=== PATIENT | female | born 1995 | race Caucasian/White ===

== ENCOUNTER 2022-05-18 10:04 | Emergency (ER) | payer OTHER, SELFPAY ==
[2022-05-18 10:27] VITALS: BP 116/97; PULSE 106; RESP 16; TEMP 37.1; O2SAT 99
--- NOTE | 2022-05-18 11:30 | ED.URI ---
HPI - URI/Sore Throat General Chief Complaint: Upper Respiratory Infection Stated Complaint: Sinus/Cough/Ears Time Seen by Provider: 05/18/22 11:31 Source: patient, RN notes reviewed and old records reviewed Mode of arrival: ambulatory Limitations: no limitations History of Present Illness HPI Narrative: 26-year-old female presents to the [facility] with sinus congestion, cough, ear pain that started 4 days ago. 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 States that she takes Claritin daily. No other treatment prior to arrival cut she does not know which she can take for her symptoms due to being 33 weeks . Related Data Home Medications Medication Instructions Recorded Confirmed cholecalciferol (vitamin D3) 10 10 mcg PO DAILY 05/18/22 05/18/22 mcg (400 unit) tablet escitalopram oxalate 10 mg tablet 10 mg PO DAILY 05/18/22 05/18/22 (Lexapro) famotidine 20 mg tablet (Pepcid) 20 mg PO DAILY 05/18/22 05/18/22 loratadine 10 mg tablet (Claritin) 10 mg PO DAILY 05/18/22 05/18/22 magnesium 200 mg tablet 200 mg PO DAILY 05/18/22 05/18/22 ondansetron HCl 4 mg tablet 4 mg PO Q6H 05/18/22 05/18/22 [id number] < 1 pkg PO 05/18/22 mg-iron oral combo pack Allergies Allergy/AdvReac Type Severity Reaction Status Date / Time milk Allergy Congested Verified 05/18/22 10:31 Review of Systems Review of Systems: All systems reviewed & are unremarkable except as noted in HPI and below Constitutional: Constitutional: Reports no additional constitutional complaints Eyes: Eyes: Reports no additional eye complaints ENT: Reports as per HPI Cardiovascular: Cardiovascular: Reports no additional cardiovascular complaints, Denies chest pain and Denies dyspnea Respiratory: Respiratory: Reports as per HPI, Denies chest congestion, Reports cough and Denies dyspnea Gastrointestinal: Gastrointestinal: Reports no additional gastrointestinal complaints, Denies abdominal pain, Denies nausea and Denies vomiting Musculoskeletal: Musculoskeletal: Reports no additional musculoskeletal complaints Integumentary/Breasts: Skin/Breast: Reports system reviewed and no additional complaints, except as docu Neurologic: Reports system reviewed and no additional complaints, except as documented Psychiatric: Psychiatric: Reports no additional psychiatric complaints Allergic/Immunologic: Allergic/Immunologic: Reports no additional allergic/immunologic complaints PMFSH Comments At the time of my signature, I reviewed and agree with the nursing past medical, surgical, social, and family history. There is no relevant family history pertinent to the patient complaint. Exam Const: General: cooperative, comfortable, no acute distress, well developed, alert, ill appearing acutely (mild) and well nourished Nutritional Appearance: well nourished Orientation/consciousness: patient oriented x3 Limitations: no limitations HENMT: Head: normal to inspection Ears: hearing grossly normal bilaterally and external ears normal Face/Nose/Sinus: Normal external nose present, Normal nares present, Normal nasal mucous membranes and turbinates present, Nasal discharge present clear bilateral and normal facial exam Face and sinus: normal facial exam Mouth: Yes Normal oral and palatal mucosa present, Yes lip normal and Yes moist mucous membranes Throat: posterior oropharynx normal, uvula midline and postnasal drainage Eyes: General: appearance normal, both eyes and all related structures Alignment and Position: alignment normal Periorbital: periorbital findings normal Conjunctivae: conjunctivae normal Pupils: Equal, round and reactive pupils present EOM: EOMs intact bilaterally Neck: Neck: normal visual inspection, full ROM, no lymphadenopathy and no meningeal signs Chest: Chest palpation & inspection: normal inspection of the chest Resp: Effort & Inspection: normal respiratory effort and able to speak in
== END 2022-05-18 11:47 | disposition home or self-care (01) ==
PROVIDERS: Emergency Provider Nurse Practitioner
DX: J01.40 Acute pansinusitis, unspecified (principal); R09.82 Postnasal drip
CPT/HCPCS: 87081; 87426; 87880; 99213; C9803; G0463

== ENCOUNTER 2022-11-17 10:09 | Outpatient (CLI) | payer OTHER, SELFPAY ==
[2022-11-17 10:54] LABS: Hematocrit 45.5 % (37.0-47.0); Hemoglobin 14.7 g/dL (12.0-15.0); Mean Corpuscular HGB Conc 32.3 g/dl (32-36); Mean Corpuscular Hemoglobin 27.5 pg (26-34); Mean Corpuscular Volume 85.2 fl (80-100); Mean Platelet Volume 9.4 fl (7.4-10.4); Platelet Count Result 252 k/mm3 (150-375); Red Blood Count 5.34 M/mm3 (4.2-5.4); Red Cell Distribution Width 15.3 % (11.5-14.5); White Blood Count 6.2 K/mm3 (4.5-10.0)
[2022-11-17 11:07] LABS: Alanine Aminotransferase 25 U/L (6-35); Albumin Level 4.6 g/dL (3.5-5.1); Alkaline Phosphatase 105 U/L (38-126); Anion Gap 7 mmol/L (8-16); Aspartate Amino Transferase 29 U/L (14-36); Bilirubin,Total 0.5 mg/dL (0.2-1.3); Blood Urea Nitrogen 12 mg/dL (7-17); Calcium 9.5 mg/dL (8.4-10.2); Carbon Dioxide 26 mmol/L (22-30); Chloride 103 mmol/L (98-107); Cholesterol 235 mg/dL (0-200); Estimated Glomerular Filt Rate > 60; Glucose 102 mg/dL (65-110); HDL Direct 62 mg/dL; Potassium 4.2 mmol/L (3.4-5.0); Sodium 136 mmol/L (137-145); Triglycerides 117 mg/dL (<150)
[2022-11-17 11:19] LABS: LDL Cholesterol Direct 132 mg/dL
[2022-11-23 05:20] LABS: Immunoglobulin A 157 mg/dL (47-310); TTG IGA AB <1.0 U/mL (<15.0)
== END 2022-11-17 10:10 | disposition home or self-care (01) ==
PROVIDERS: PCP Nurse Practitioner Family; Visit Provider Nurse Practitioner Family
DX: Z13.220 Encounter for screening for lipoid disorders (principal); R19.4 Change in bowel habit; F32.A Depression, unspecified
CPT/HCPCS: 36415; 80053; 80061; 82607; 82784; 84443; 85027; 86003; 86364

== ENCOUNTER 2022-12-08 13:47 | Outpatient (CLI) | payer OTHER, SELFPAY ==
--- NOTE | ~2022-12-08 | XR_ITS ---
XR abdomen/kub 1V 12/08/2022 14:10 INDICATION: Frequent diarrhea TECHNIQUE: KUB COMPARISON: None FINDINGS: Bowel gas pattern is normal. Moderate colonic fecal loading. There is no evidence of free a ir, mass, organomegaly, ascites or obstruction. No abnormal calculi are seen. The bones appear inta ct. IMPRESSION: 1: No acute abdominal abnormality identified. Reviewed, dictated and finalized at location B.
[2022-12-09 08:12] LABS: Toxigenic C. Diff NEGATIVE (NEGATIVE)
== END 2022-12-08 13:48 | disposition home or self-care (01) ==
PROVIDERS: PCP Nurse Practitioner Family; Visit Provider Nurse Practitioner Family
DX: R19.4 Change in bowel habit (principal); R19.7 Diarrhea, unspecified
CPT/HCPCS: 74018; 87493

== ENCOUNTER 2022-12-11 15:56 | Outpatient (CLI) | payer OTHER, SELFPAY ==
--- NOTE | ~2022-12-11 | US_ITS ---
EXAMINATION: US pelvic complete w TV DATE: 12/11/2022 17:53 INDICATION: Abnormal uterine bleeding Comparison:No prior studies for comparison. TECHNIQUE: Multiple transabdominal and endovaginal sonographic images of the pelvis performed. FINDINGS: The uterus measures 7.1 x 3.3 x 4.5 cm. Uterus is anteverted. The endometrial complex measu res 4.8 mm. The right ovary measures 4.2 x 2.4 x 2.5 cm and the left ovary measures 3.4 x 2.4 x 2.1 cm. There ar e small follicles in each ovary. Normal doppler signal in both ovaries. There is trace free fluid in the pelvis. There are no abnormal masses seen on either side. IMPRESSION: 1. Unremarkable pelvic ultrasound. Reviewed, dictated and finalized at location A.
== END 2022-12-11 15:57 | disposition home or self-care (01) ==
PROVIDERS: PCP Nurse Practitioner Family; Visit Provider Advanced Practice Midwife
DX: N93.9 Abnormal uterine and vaginal bleeding, unspecified (principal)
CPT/HCPCS: 76830; 76856

== ENCOUNTER 2022-12-28 14:39 | Emergency (ER) | payer OTHER, SELFPAY ==
--- NOTE | ~2022-12-28 | XR_ITS ---
EXAM: XR wrist LT min 3V DATE: 12/28/2022 16:01 HISTORY: Wrist pain . COMPARISON: None available. FINDINGS: Normal mineralization. No fracture or dislocation. No lytic or blastic lesion. Joint space s are maintained. No erosion or periosteal change. Soft tissues within normal limits. IMPRESSION: No acute osseous finding in the left wrist. Reviewed, dictated and finalized at location K.
--- NOTE | ~2022-12-28 | XR_ITS ---
EXAM: XR elbow LT 2V DATE: 12/28/2022 15:37 HISTORY: fall, elbow injury SMALL ABRASION POSTERIOR ELBOW . COMPARISON: None available. FINDINGS: Normal mineralization. No fracture or dislocation. No lytic or blastic lesion. Joint space s are maintained. No erosion or periosteal change. Soft tissues within normal limits. IMPRESSION: No acute osseous finding in the left elbow. Reviewed, dictated and finalized at location K.
[2022-12-28 14:44] VITALS: BP 144/95; PULSE 100; RESP 18; TEMP 36.8; O2SAT 100
[2022-12-28] MEDS: ACETAMINOPHEN 500 MG TABLET 1000 MG PO (16:04)
[2022-12-28] MEDS: LIDOCAINE 5% PATCH 1 PATCH TRANSDERM (16:06)
--- NOTE | 2022-12-28 16:10 | ED.UPPEXIN ---
HPI - Extremity Injury (Upper) General Chief Complaint: Extremity Injury, Upper Stated Complaint: FALL,L ELBOW INJURY Time Seen by Provider: 12/28/22 15:28 History of Present Illness HPI narrative: This is a 27-year-old female, with no significant past medical history, presents emergency department complaining of left elbow pain and left wrist pain after fall. The patient states she was walking her dog, when she was pulled forward, tripping and landing on the left wrist and elbow. She complains of 5/10, dull pain in the left elbow and wrist (just below the right thumb) exacerbated by movement. Related Data Allergies Allergy/AdvReac Type Severity Reaction Status Date / Time No Known Allergies Allergy Verified 12/28/22 14:46 Review of Systems Review of Systems: CONSTITUTIONAL: Denies fever, chills, or sweats. CARDIOVASCULAR: Denies chest pain, palpitations, or edema. RESPIRATORY: Denies cough or dyspnea. GASTROINTESTINAL: Denies abdominal pain, nausea, vomiting, or diarrhea. SKIN: Denies rash or itching. MUSCULOSKELETAL: Left elbow and wrist pain denies back pain, or myalgia. PMFSH Past Medical History Medical History Abdominal pain Blood in stool Diarrhea Gas bloat syndrome Social History Social History Social History: Lives at home with and two children. Smoking status: Unknown if ever smoked Alcohol intake: current Alcohol use details: 1 glass/wine 1-2 x/week Substance use type: does not use Lack of Transportation: No Lack of Food: Never True Current Housing: I Have Housing Concerned About Future Housing: No Difficulty Paying Gas/Electric Bills: No Difficulty Paying for Meds: No Currently Unemployed: No Education: Associate Degree Difficulty w/ Childcare or Family Care: No Living arrangements: with family Additional living arrangements comments: and two children Gender identity (if verbalized by the patient): Female Sexual Orientation (if Verbalized by the Patient): Straight or Heterosexual Spiritual care concerns: No Agree to blood products: Yes Exam Narrative: GENERAL: Well-developed, well-nourished, and in no acute distress. HEAD: Normocephalic, atraumatic. EYES: PERRLA and EOMI. NECK: Supple. No midline spine tenderness to palpation no step-off or crepitus CHEST: Clear to auscultation. No respiratory distress. No wheezes rales or rhonchi HEART: Regular rate and rhythm. No murmur heard. Normal peripheral pulses. ABDOMEN: Soft, nontender, nondistended, normal active bowel sounds. BACK: No midline spine tenderness to palpation no step-off or crepitus EXTREMITIES: Normal range of motion. No edema. SKIN: Warm, dry, no rash. NEURO: Alert and oriented x3. Moving all 4 limbs purposefully. PSYCH: Normal mood and affect. Course Course Emergency Course: 16:37 - X-ray of the elbow and wrist not concerning for fracture. The patient's tetanus vaccination is up-to-date. Will discharge with recommendation for Tylenol and ibuprofen as needed for pain. Discussed return and emergency precautions including signs/symptoms of septic arthritis and neurovascular compromise. The patient voiced understanding and is comfortable with the plan. All questions answered to her satisfaction. Vital Signs Vital signs: Vital Signs Temperature 98.2 F 12/28/22 14:44 Pulse Rate 100 12/28/22 14:44 Respiratory Rate 18 12/28/22 14:44 Blood Pressure 144/95 H 12/28/22 14:44 Pulse Oximetry 100 12/28/22 14:44 Oxygen Delivery Room Air 12/28/22 14:44 Temperature 98.2 F 12/28/22 14:44 Pulse Rate 100 12/28/22 14:44 Respiratory Rate 18 12/28/22 14:44 Blood Pressure 144/95 H 12/28/22 14:44 Pulse Oximetry 100 12/28/22 14:44 Oxygen Delivery Room Air 12/28/22 14:44 MDM - Extremity Injury (Upper) MDM Narrative Medical
== END 2022-12-28 16:49 | disposition home or self-care (01) ==
PROVIDERS: Emergency Provider Preventive Medicine Aerospace Medicine; PCP Nurse Practitioner Family
DX: S50.02XA Contusion of left elbow, initial encounter (principal); S60.212A Contusion of left wrist, initial encounter; W01.0XXA Fall on same level from slipping, tripping and stumbling without subsequent striking against object, initial encounter; Y93.K1 Activity, walking an animal
CPT/HCPCS: 73070; 73110; 99283; A9270

== ENCOUNTER 2023-01-16 00:45 | Day surgery (SDC) | payer OTHER, SELFPAY ==
[2023-01-01 13:20] VITALS: BMI 39.5
--- NOTE | 2023-01-14 10:24 | SUR.PREOP ---
Patient called regarding upcoming procedure. Reviewed preop instructions, appointment times, and procedure prep.
[2023-01-16 08:12] VITALS: BP 135/86; PULSE 84; RESP 18; TEMP 36.1; O2SAT 100
[2023-01-16] MEDS: LACTATED RINGERS 1,000 ML 150 ML IV CONT (08:21)
--- NOTE | 2023-01-16 08:43 | WPDANESEPPF ---
Anes - Initial Pre Proc Eval Procedure: Operation Date: 01/16/23 09:00 Proposed Procedures p Colonoscopy - Jarvis Rodgers MD Date/Time: 01/16/23 08:43 Surgeon: Jarvis Rodgers MD Pre Op Diagnosis: Melena,Change in bowel habit,Diarrhea Patient Data Age: 27 Gender: F Height: 1.55 m Weight: 93.5 kg Last Vital Signs Temp 97 F L 01/16/23 08:12 Pulse 84 01/16/23 08:12 Resp 18 01/16/23 08:12 BP 135/86 01/16/23 08:12 Pulse Ox 100 01/16/23 08:12 O2 Del Method Room Air 01/16/23 08:12 Allergies Allergy/AdvReac Type Severity Reaction Status Date / Time No Known Allergies Allergy Verified 01/16/23 08:11 Home Medications Medication Instructions Recorded Confirmed Type escitalopram oxalate 10 mg tablet 10 mg PO DAILY #90 tabs 11/17/22 01/01/23 Rx (Lexapro) Patient hx anesthesia problems: none Family hx anesthesia problems: none Results Review: All pre-operative results and documents have been reviewed as part of the pre-operative evaluation. [facility] Past Medical History Medical History Abdominal pain Blood in stool Diarrhea Gas bloat syndrome Social History Social History Social History: Lives at home with and two children. Smoking status: Never smoker Alcohol intake: current Drinks per week: 1 Alcohol use details: 1 glass/wine 1-2 x/week Substance use type: does not use Lack of Transportation: No Lack of Food: Never True Current Housing: I Have Housing Concerned About Future Housing: No Difficulty Paying Gas/Electric Bills: No Difficulty Paying for Meds: No Currently Unemployed: No Education: Associate Degree Difficulty w/ Childcare or Family Care: No Living arrangements: with family Additional living arrangements comments: and two children Gender identity (if verbalized by the patient): Female Sexual Orientation (if Verbalized by the Patient): Straight or Heterosexual Spiritual care concerns: No Agree to blood products: Yes Anes - Eval Final PreProcedure Day of Procedure 01/16/23 08:43 Patient weight: morbidly obese Heart: regular rate and rhythm Lungs: clear to auscultation Airway: Mallampati scale class II Neurological: alert and oriented Last oral intake: >/= 8 hours ASA classification: III Emergent: no Anesthetic plan: proceed Anesthesia type and monitoring: general GIVS and standard monitoring Results Review: All pre-operative results and documents have been reviewed as part of the pre-operative evaluation. Informed Consent: The patient's anesthetic plan and its attendant risks and benefits were discussed with the patient/family/POA. Questions were solicited and answers provided to the satisfaction of the patient/family/POA.
--- NOTE | 2023-01-16 08:46 | PM.HPGS ---
History of Present Illness History of Present Illness Consent: Risks, benefits, and alternatives have been discussed and questions answered. Patient agrees to proceed with procedure. Chief complaint: Melena,Change in bowel habit,Diarrhea Narrative: Enedina Urbina is a 27 year old female with loose stools, in few occasions noted blood in stool, never had colonoscopy. Serology for celiac negative, C diff negative Review of Systems Constitutional: Constitutional: Denies headache(s) and Denies weakness Eyes: Eyes: Denies blurry vision ENT: Reports Normal hearing present, Denies headache(s) and Denies neck pain Cardiovascular: Cardiovascular: Denies chest pain and Denies dyspnea Respiratory: Respiratory: Denies dyspnea Gastrointestinal: Gastrointestinal: Reports no additional gastrointestinal complaints Genitourinary: Genitourinary: Denies dysuria Musculoskeletal: Musculoskeletal: Denies neck pain Integumentary/Breasts: Skin/Breast: Denies dry skin Neurologic: Reports Normal hearing present, Denies headache(s) and Denies weakness Psychiatric: Psychiatric: Denies anxiety Endocrine: Endocrine: Denies change in body appearance Hematologic/Lymphatic: Hematologic/Lymphatic: Denies easy bleeding Allergic/Immunologic: Allergic/Immunologic: Denies urticaria PMFSH Past Medical History Medical History Abdominal pain Blood in stool Diarrhea Gas bloat syndrome Social History Social History Social History: Lives at home with and two children. Smoking status: Never smoker Alcohol intake: current Drinks per week: 1 Alcohol use details: 1 glass/wine 1-2 x/week Substance use type: does not use Lack of Transportation: No Lack of Food: Never True Current Housing: I Have Housing Concerned About Future Housing: No Difficulty Paying Gas/Electric Bills: No Difficulty Paying for Meds: No Currently Unemployed: No Education: Associate Degree Difficulty w/ Childcare or Family Care: No Living arrangements: with family Additional living arrangements comments: and two children Gender identity (if verbalized by the patient): Female Sexual Orientation (if Verbalized by the Patient): Straight or Heterosexual Spiritual care concerns: No Agree to blood products: Yes Meds Home Medications and Allergies Home Medications Medication Instructions Recorded Confirmed Type escitalopram oxalate 10 mg tablet 10 mg PO DAILY #90 tabs 11/17/22 01/01/23 Rx (Lexapro) Allergies Allergy/AdvReac Type Severity Reaction Status Date / Time No Known Allergies Allergy Verified 01/16/23 08:11 Vital Signs Vital Signs - 24 hr 01/16/23 08:12 Temperature 97 F L Pulse Rate 84 Respiratory Rate 18 Blood Pressure 135/86 Pulse Oximetry 100 Oxygen Delivery Room Air Exam Const: General: comfortable and no acute distress HENMT: Face/Nose/Sinus: Normal nares present Eyes: General: appearance normal, both eyes and all related structures Neck: Neck: no JVD Resp: Auscultation: clear to auscultation bilaterally Cardio: Rate: regular rate Rhythm: regular rhythm GI: Inspection: non-distended GI Palp: Yes Soft to palpation Skin: General skin exam: normal color Neuro: General: gait normal Speech: normal speech Extrem: General: normal to inspection Psych: Mental Status: mental status grossly normal Assessment and Plan Assessment and plan (1) Diarrhea: Code(s): R19.7 - Diarrhea, unspecified Status: Acute Assessment and Plan: colonoscopy with random colon bx (2) Blood in stool: Code(s): K92.1 - Melena Status: Acute (3) Bowel habit changes: Code(s): R19.4 - Change in bowel habit Status: Acute
[2023-01-16 09:01] VITALS: BP 108/73; PULSE 92; RESP 18; O2SAT 97
[2023-01-16 09:11] VITALS: BP 109/86; PULSE 77; RESP 18; O2SAT 100
[2023-01-16 09:21] VITALS: BP 111/84; PULSE 76; RESP 18; O2SAT 99
== END 2023-01-16 09:28 | disposition home or self-care (01) ==
PROVIDERS: PCP Nurse Practitioner Family; Visit Provider Internal Medicine Gastroenterology
PROC: 0DJD8ZZ Inspection of Lower Intestinal Tract, Via Natural or Artificial Opening Endoscopic (ICD-10-PCS; CPT 45378; principal; 2023-01-16 09:00)
DX: K52.832 Lymphocytic colitis (principal); K63.5 Polyp of colon; F10.90 Alcohol use, unspecified, uncomplicated; E66.01 Morbid (severe) obesity due to excess calories; Z68.38 Body mass index [BMI] 38.0-38.9, adult; Z79.899 Other long term (current) drug therapy
CPT/HCPCS: 45385; 45380; 88305; J2704; J7120

== ENCOUNTER 2024-06-23 15:01 | Outpatient (CLI) | payer OTHER, SELFPAY ==
[2024-06-23 15:23] LABS: Basophils Absolute Auto 0.1 K/mm3 (0.0-0.1); Eosinophils Absolute Auto 0.1 K/mm3 (0-0.3); Eosinophils Percent Auto 1.8 % (0-4.4); Hematocrit 41.8 % (37.0-47.0); Hemoglobin 13.2 g/dL (12.0-15.0); Immature Granulocyte Absolute 0.02 K/mm3 (0.00-0.031); Immature Granulocyte Percent A 0.3 % (0-0.5); Lymphocytes Absolute Auto 2.64 K/mm3 (0.9-3.2); Lymphocytes Percent Auto 44.4 % (18.3-44.2); Mean Corpuscular HGB Conc 31.6 g/dl (32-36); Mean Corpuscular Hemoglobin 28.1 pg (26-34); Mean Corpuscular Volume 88.9 fl (80-100); Monocytes Absolute Auto 0.5 K/mm3 (0.1-0.6); Monocytes Percent Auto 8.9 % (2.6-8.5); Neutrophils Absolute Auto 2.6 K/mm3 (1.3-6.7); Neutrophils Percent Auto 43.6 % (45.5-73.1); Platelet Count Result 337 k/mm3 (150-375); Red Cell Distribution Width 12.3 % (11.5-14.5)
[2024-06-23 15:36] LABS: Alanine Aminotransferase 18 U/L (6-35); Albumin Level 4.6 g/dL (3.5-5.1); Alkaline Phosphatase 84 U/L (38-126); Anion Gap 7 mmol/L (4-12); Aspartate Amino Transferase 26 U/L (14-36); Bilirubin,Total 0.5 mg/dL (0.2-1.3); Blood Urea Nitrogen 10 mg/dL (7-17); Calcium 9.3 mg/dL (8.4-10.2); Carbon Dioxide 29 mmol/L (22-30); Chloride 105 mmol/L (98-107); Cholesterol 196 mg/dL (0-200); Estimated Glomerular Filt Rate > 60; Glucose 87 mg/dL (65-110); HDL Direct 62 mg/dL; Magnesium 2.2 mg/dL (1.6-2.3); Potassium 4.4 mmol/L (3.4-5.0); Sodium 141 mmol/L (137-145); Triglycerides 58 mg/dL (<150)
[2024-06-23 15:47] LABS: LDL Cholesterol Direct 99 mg/dL
[2024-06-23 16:06] LABS: Hemoglobin A1C 4.9 % (<5.7)
--- OUTSIDE RECORDS SUMMARY | 2024-06-23 16:16 | XMS_ITS | Clinical Summary ---
Author Organization [facility] Address [address] [place] [id number] Care Team Providers Care Contracting Manager Name Role Phone Ilene Cedillo MIGNON Primary Care Provider [phone] Allergies Active Allergy Reactions Criticality Noted Date Comments Latex Rash,Itching Low 07/04/2022 Medications escitalopram (LEXAPRO) 10 MG tablet Take 1 tablet (10 mg total) by mouth daily. Active vitamin, low iron, ( VITAMIN WITH IRON) 27-0.8 MG tablet Take 1 tablet by mouth daily. Active lanolin ([employer]) Cream cream Apply topically as needed for Irritation. 9 mL 1 3 Active benzocaine-ment hol (DERMOPLAST) 20-0.5 % Aerosol Apply 1 spray topically 4 (four) times daily as needed (Perineal discomfort). 56 g 1 3 Active Active Problems Problem Noted Date Diagnosed Date ([facility]) 07/04/2022 mental disorders of mother ([facility]) 07/04/2022 Family History * Patient is adopted Medical History Relation Comments Obesity Father Cancer Maternal Grandmother Obesity Mother Cancer Paternal Grandmother Relation Status Comments Father Maternal Grandmother Mother Paternal Grandmother Social History Tobacco Use Types Packs/Day Years Used Date Smoking Tobacco: Never Smokeless Tobacco: Never Tobacco Cessation:Counseling Given: Not Answered Alcohol Use Standard Drinks/Week Comments Not Currently 0 (1 standard drink = 0.6 oz pur e alcohol) Humiliation, Afraid, Rape, and Kick questionnair e Answer Date Recorded Within the last year, have y ou been afraid of your partner or ex-partner? No 07/05/2022 Within the last year, have y ou been humiliated or emotionally abused in other ways by your partner or ex-partner? No Within the last year, have y ou been kicked, hit, slapped, or otherwise physically hurt by your partner or ex-partner? No 07/05/2022 Within the last year, have y ou been raped or forced to have any kind of sexual activity by your partner or ex-partner? No 07/05/2022 Social Connection and Isolat ion Panel [NHANES] Answer Date Recorded In a typical week, how many times do you talk on the phone with family, friends, or neighbors? More than three times a week 07/05/2022 How often do you get togethe r with friends or relatives? Patient declined 07/05/2022 Attends [employer] Not on file 07/05 Active Member of Clubs or Organizations Not on f ile 07/05/2022 Attends Club or Organization Meetings Not on cyrus e 07/05/2022 Are you , , di vorced, , never , or living with a partner? 07/05/2022 AUDIT-C Answer Date Recorded Q1: How often do you have a drink containing alcohol? Never 07/05/2022 Q2: How many drinks containi ng alcohol do you have on a typical day when you are drinking? Patient does not drink Q3: How often do you have si x or more drinks on one occasion? Never 07/05/2022 Overall Financial Resource Strain (CARDIA) Answe r Date Recorded How hard is it for you to pa y for the very basics like food, housing, medical care, and heating? Not hard at all 07/05/2022 [facility] - Occupational Stress Questionnaire Answer Date Recorded Do you feel stress - tense, restless, nervous, or anxious, or unable to sleep at night because your mind is troubled all the time - these days? Not at all 07/05/2022 Exercise Vital Sign Answer Date Recorde d On average, how many days pe r week do you engage in moderate to strenuous exercise (like a brisk walk)? Patient declined On average, how many minutes do you engage in exercise at this level? Patient declined 07/05/2022 Hunger Vital Sign Answer Date Recorded Within the past 12 months, y ou worried that your food would run out before you got the money to buy more. Never true 07/06/19 23 Within the past 12 months, t he food you bought just didn't last and you didn't have money to get more. Never true 07/05/2022 PRAPARE - Transportation Answer Date Re corded In the past 12 months, has l ack of transportation kept you from medical appointments or from getting medications? No 07/2022 In the past 12 months, has l ack of transportation kept you from meetings, work, or from getting things needed for daily living? No 07/05/2022 Housing Stability Vital Sign Answer Stan e Recorded In the last 12 months, was t here a time when you were not able to pay the mortgage or rent on time? No 07/05/2022 Number of Places Lived in the Last Year Not on f ile 07/05/2022 In the last 12 months, was t here a time when you did not have a steady place to sleep or slept in a fci (including now)? No 07/05/2022 Depression Answer Date Recor ded Last EPDS Total Score 6 07/06/2022 Last EPDS Self Harm Result Unrecognized value Comments No Sex and Gender Information Value Date Recorded Sex Assigned at Not on file Legal Sex Female 8:16 AM CDT Gender Identity Not on file Sexual Orientation Not on file Last Filed Vital Signs Vital Sign Reading Time Taken Comments Blood Pressure 139/84 03/17/2023 1:13 PM POLYMER SPECIALIST Pulse 78 03/17/2023 1:13 PM POLYMER SPECIALIST Temperature 36.4 C (97.5 F) 03/17/2023 1:13 PM POLYMER SPECIALIST Respiratory Rate 18 03/17/2023 1:13 PM POLYMER SPECIALIST Oxygen Saturation 100% 03/17/2023 1:13 PM POLYMER SPECIALIST Inhaled Oxygen Concentration - - Weight 94.7 kg (208 lb 12.4 oz) 03/17/2023 1:13 PM POLYMER SPECIALIST Height 157.5 cm (5' 2 ) 03/17/2023 1:13 PM POLYMER SPECIALIST Body Mass Index 38.19 03/17/2023 1:13 PM POLYMER SPECIALIST Plan of Treatment Health Maintenance Due Date Last Done Comments Cervical Cancer Screening Yovany soria Smear (Age 21 to 29) Every 3 Years 1994 Cervical Cancer Screening 1994 Annual Physical 1997 Hepatitis C 2012 Hepatitis B Vaccines (1 of 3 - 19+ 3-dose series) 2013 COVID-19 Vaccine (2 - 2023-2 5 season) 2023 10/03/2020 DTaP, Tdap and Td Vaccines ( 3 - Td or Tdap) 05/09/2032 05/09/2022, 10/03/2020 HPV Vaccines Aged Out No longer eligi ble based on patient's age to complete this topic Meningococcal B Vaccine Aged Out No l onger eligible based on patient's age to complete this topic Meningococcal Vaccine Aged Out No bill sally eligible based on patient's age to complete this topic Pneumococcal Vaccine: Pediatrics (0 to 5 Years) and At-Risk Patients (6 to 49 Years) Aged Out No longer eligible b ased on patient's age to complete this topic RSV Immunizations Under 20 Months Aged Out No longer eligible b ased on patient's age to complete this topic Insurance ALLIED BENEFITS Advance Directives * Full Code (Latest Code Status on File) Date Activated Date Inactivated Comments 07/04/2022 8:29 AM 07/06/2022 3:03 PM Care Teams Contracting Manager Relationship Specialty Start Date End Date Ilene Cedillo CNM [address] [place] [id number] (work) PCP - General CERTIFIED NURSE OPTIMIZATION ANALYST 07/03/22
--- OUTSIDE RECORDS SUMMARY | 2024-06-23 16:16 | XMS_ITS | Referral Summary ---
Author Organization [facility] C Address [address] [place] [address] Care Team Providers Care Supervisor Cloth Winding Name Role Phone No, Physician Primary Care Provider [phone] Alphonso Frias MD Unavailable [phone] Allergies Active Allergy Reactions Criticality Noted Date Comments Adhesive Unknown 11/08/2020 Latex Rash Medium 09/14/2020 Sensitivity to latex condoms and some adhesives Milk Unknown 11/08/2020 Medications calcium carbonate (TUMS) 500 mg calcium (200 mg of elemental calcium) chewable tablet Take 200 mg by mouth as needed Active famotidine (PEPCID) 20 mg tablet Take 20 mg by mouth 2 (two) times a day Active acetaminophen (TYLENOL ORAL) Take by mouth as needed Active diphenhydramine HCl (BENADRYL ALLERGY ORAL) Take by mouth Active amoxicillin (AMOXIL) 875 mg tablet Take 875 mg by mouth every 12 (twelve) hours 05/18/2022 Active loratadine (CLARITIN) 10 mg tablet Take 10 mg by mouth daily Active ondansetron (ZOFRAN) 4 mg tablet Take 4 mg by mouth every 4 (four) hours as needed 04/10/2022 Active escitalopram (LEXAPRO) 10 mg tablet Take 10 mg by mouth daily 05/10/2022 Active PNV no.95/ferrous fum/folic ac ( ORAL) Take by mouth daily Active cholecalciferol , vitamin D3, (VITAMIN D3 ORAL) Take 1 capsule by mouth daily Active magnesium glycinate 100 mg tablet Take 3 tablet/capsu le by mouth daily Active Active Problems Problem Noted Date Diagnosed Date Generalized anxiety disorder 10/13/2020 Panic attacks 10/13/2020 with 32 completed weeks gestation 09/30 Acute right flank pain 10/12/2020 Nausea and vomiting 10/12/2020 Dehydration 10/12/2020 Anemia during in third trimester 10/12 Kidney stone complicating , third trime ster 10/12/2020 Immunizations Immunization Administration Dates Next Due MMR 11/26/2020 Pfizer SARS-CoV-2 Monovalent Vaccination (12+ Yrs) PURPLE 10/03/2020 Tdap 10/03/2020 Social History Tobacco Use Types Packs/Day Years Used Date Smoking Tobacco: Never Smokeless Tobacco: Never Humiliation, Afraid, Rape, and Kick questionnair e Answer Date Recorded Within the last year, have y ou been afraid of your partner or ex-partner? No 11/08/2020 Within the last year, have y ou been humiliated or emotionally abused in other ways by your partner or ex-partner? No Within the last year, have y ou been kicked, hit, slapped, or otherwise physically hurt by your partner or ex-partner? No 11/08/2020 Within the last year, have y ou been raped or forced to have any kind of sexual activity by your partner or ex-partner? No 11/08/2020 AUDIT-C Answer Date Recorded Q1: How often do you have a drink containing alc ohol? Never 11/26/2020 Average Number of Drinks Not on file 021 Frequency of Binge Drinking Not on file 11/01 [place] Depression Scale Answer Date Recorded [place] Depression Scale Total 3 11/29/2020 The thought of harming myself has occurred to me . Never 11/29/2020 Personal Safety Answer Date Recorded Getting School Help Needed Not on file 03/01 Comments No Sex and Gender Information Value Date Recorded Sex Assigned at Not on file Legal Sex Female 8:20 AM CDT Gender Identity Not on file Sexual Orientation Not on file Last Filed Vital Signs Vital Sign Reading Time Taken Comments Blood Pressure 123/56 05/23/2022 3:43 PM CDT Pulse 93 05/23/2022 3:43 PM CDT Temperature 36.1 C (97 F) 05/23/2022 3:46 PM CDT Respiratory Rate 18 11/29/2020 8:00 AM CDT Oxygen Saturation 100% 05/23/2022 3:43 PM CDT Inhaled Oxygen Concentration - - Weight 87.1 kg (192 lb) 05/23/2022 12:58 PM CDT Height 154.9 cm (5' 1 ) 05/23/2022 12:58 PM CDT Body Mass Index 36.28 05/23/2022 12:58 PM CDT Plan of Treatment Not on file Procedures Procedure Name Priority Date/Time Associated Diagnosis Comments HEPATITIS C ANTIBODY Routine 05/05/2020 from Last 3 Months or Most Recently Relevant to Health Maintenance Results * Hepatitis C antibody (05/05/2020) SCRIBED HCV ab negative Blood specimen (specimen) Alphonso Frias MD LAB MICROBIOLOGY - GENERAL ORDERABLES Final Result from Last 3 Months or Most Recently Relevant to Health Maintenance Insurance COMMERCIAL GENERIC COMMERCIAL GENERIC CIG[employer] OPEN ACCESS LOCAL PLUS COMMERCIAL GENERIC Advance Directives For more information, please contact: [phone] * Full Code (Latest Code Status on File) Date Activated Date Inactivated Comments 11/26/2020 1:17 PM 11/29/2020 3:03 PM * Full Code Date Activated Date Inactivated Comments 11/26/2020 9:58 AM 11/26/2020 1:17 PM Full CPR in case of cardiopulmonary arrest * Full Code Date Activated Date Inactivated Comments 10/12/2020 2:43 AM 10/14/2020 6:46 PM Care Teams Supervisor Cloth Winding Relationship Specialty Start Date End Date No, Physician PCP - General 07/24/20 Alphonso Frias MD [address] [address] [facility] [employer] Caretaker Obstetrics and Gynecology 11/27/20
--- OUTSIDE RECORDS SUMMARY | 2024-06-23 16:16 | XMS_ITS | Clinical Summary ---
Author Organization [facility] C Address [address] [place] [address] Care Team Providers Care Marking Devices Assembler Name Role Phone No, Physician Primary Care Provider [phone] Alphonso Frias MD Unavailable [phone] Allergies Active Allergy Reactions Criticality Noted Date [...] Vaccination (12+ Yrs) PURPLE 10/03/2020 Tdap 10/03/2020 Surgical History Surgery Date Site/Laterality Comments WISDOM TOOTH EXTRACTION 03/02/2012 - 03/01/2013 UPPER GASTROINTESTINAL ENDOSCOPY 03/02/2017 - 03/01/2018 Fish bone removed Medical History Medical History Date Comments Abnormal Pap smear of cervix HX HPV Hypoglycemia HPV (human papilloma virus) infection Kidney stones 09/2020 Social History Tobacco Use Types Packs/Day Years [...] of Binge Drinking Not on file 11/01 [place] Depression Scale Answer Date Recorded [place] Depression Scale Total 3 11/29/2020 The thought of harming myself has occurred to me . Never 11/29/2020 Personal Safety Answer Date Recorded Getting School Help Needed Not on file 03/01 Comments No Sex and Gender Information Value Date Recorded Sex Assigned at Not on file Legal Sex Female 8:20 AM CDT Gender Identity Not on file Sexual Orientation Not on file Obstetrics History Para Term AB IAB SAB Ectopic Multiple Livin g Live Births 2 1 1 0 1 1 Date Outcome GA Total Labor Labor/2nd/3rd Weight Sex Type Anes PTL Jenny A1 A5 Name Clin 2020 Term 39w 0d 0h 01m 0h 01m 3.05 kg (6 lb 11.6 oz) F CS-LT ranv Spinal N Livin g 8 9 BRIDG ES,GI RLERI N Cain Frias MD Complications:None Delivery Location:This Facil ity ([facility]) Comments:see ped note Last Filed Vital Signs Vital Sign Reading [...] 05/23/2022 12:58 PM CDT Plan of Treatment Health Maintenance Due Date Last Done Comments Cervical Cancer Screening 1994 Varicella Vaccines (1 of 2 - 13+ 2-dose series) 09/06/2007 Hepatitis B Screening 2012 Regular Well Visit/Exam 18-64 2012 Depression Screening 11/29/2021 11/29/2020 Covid-19 Vaccine (2 - 2023-2 5 season) 2023 10/03/2020 Influenza Vaccine (Season Ended) 2024 12/08/2018 DTaP/Tdap/Td Vaccine (3 - Td or Tdap) 10/03/2030 10/03/2020, 07/31/2018 Hepatitis C Screening Completed 05/05/2020 HPV Vaccines Aged Out No longer eligi ble based on patient's age to complete this topic Pneumococcal vaccine <65 Aged Out No longer eligible based on patient's age to complete this topic Procedures Procedure Name Priority Date/Time Associated Diagnosis Comments HEPATITIS C ANTIBODY Routine 05/05/2020 from Last 3 Months or Most Recently Relevant to Health Maintenance Results * Hepatitis C antibody (05/05/2020) SCRIBED HCV ab negative Blood specimen (specimen) Alphonso Frias MD LAB MICROBIOLOGY - GENERAL ORDERABLES Final Result from Last 3 Months or Most Recently Relevant to Health Maintenance Insurance COMMERCIAL GENERIC Member Subscriber Plan / Payer (Ef fective 2020-Present) Name:Enedina Urbina Relation to Subscriber:Self Name:Enedina Urbina Payer ID:[id number] Group ID:[id number] Type:COMMERCIAL Address: [place] [phone] COMMERCIAL GENERIC CIGNA OPEN ACCESS LOCAL PLUS COMMERCIAL GENERIC Advance Directives For more information, please contact: [phone] * Full Code (Latest Code Status on File) Date Activated Date Inactivated Comments 11/26/2020 1:17 PM 11/29/2020 3:03 PM * Full Code Date Activated Date Inactivated Comments 11/26/2020 9:58 AM 11/26/2020 1:17 PM Full CPR in case of cardiopulmonary arrest * Full Code Date Activated Date Inactivated Comments 10/12/2020 2:43 AM 10/14/2020 6:46 PM Care Teams Marking Devices Assembler Relationship Specialty Start Date End Date No, Physician PCP - General 07/24/20 Alphonso Frias MD [address] [place] [address] Wall Man Obstetrics and Gynecology 11/27/20
--- OUTSIDE RECORDS SUMMARY | 2024-06-23 16:17 | XMS_ITS | Clinical Summary ---
Author Organization [facility] Address [address] [place] [address] Phone Care Team Providers Care Porcelain Mixer Name Role Phone Tarah Samson MD Primary Care Provider [phone] Allergies Active Allergy Reactions Criticality Noted Date Comments Adhesive Tape-Silicones Hives High 06/22/2019 Latex Other (See Comments),Itching,Mike h,Unknown Medium 09/14/2020 Sensitivity to latex condoms and some adhesives Milk Unknown 11/08/2020 Medications atomoxetine (STRATTERA) 80 mg capsule 1 capsule in the morning Orally Once a day for 90 days after two week of atomoxetine 25 mg taper Active amphetamine-dex troamphetamine (ADDERALL XR) 30 mg Extended Release 24 hour capsule take 1 capsule by mouth every day in the morning Active escitalopram oxalate (LEXAPRO) 10 mg tablet Take 20 mg by mouth daily. 05/11/19 23 Active hydrOXYzine HCL (ATARAX) 10 mg tablet Take 10 mg by mouth 2 times daily. Active metroNIDAZOLE (FLAGYL) 500 mg tablet Take 1 Tablet (500 mg) by mouth 2 times daily. Take with meals, avoid alcohol during treatment and for 3 days after last dose 14 Tablet 04/19/19 25 Active amphetamine-dex troamphetamine (ADDERALL XR) 30 mg Extended Release 24 hour capsule Take 1 Capsule (30 mg) by mouth daily in the morning. Max Daily Amount: 30 mg 30 Capsule 5 12:21 PM WIRE CHARGER 05/03/19 25 Active cloNIDine HCL (CATAPRES) 0.1 mg tablet Take 1 Tablet (0.1 mg) by mouth daily at bedtime. 90 Tablet 5 12:21 PM WIRE CHARGER 05/05/19 25 Active terconazole (TERAZOL) 80 mg Suppository Insert one suppository in vagina every night at bedtime for 3 nights 3 Suppository 1 5 1:04 PM CDT 06/04/19 25 025 Active Problems Problem Noted Date Diagnosed Date Threatened labor 09/14/2020 Encounters Date Type Department Care Team Description 06/06/2024 Results Follow-Up [facility] DISASTER RECOVERY COORDINATOR [facility] [address] [address] [place] [address] Roge Alexandre MD URINE CULTURE, VAGINOSIS/VAGINITIS PANEL BASIC 06/03/2024 12:00 PM CDT Office [facility] [address] [address] [place] [address] Roge Alexandre MD UTI symptoms (Primary Dx); Urethral bleeding; Vulvar itching 06/02/2024 Telephone [facility] Women's Health Clinical Support [address] [place] [address] Jennie Wall RN Urinary Pain 05/31/2024 External Device Data [facility] ABSTRACTION Provider, Abstract 05/10/2024 External Device Data [facility] ABSTRACTION Provider, Abstract 05/10/2024 External Device Data [facility] ABSTRACTION Provider, Abstract 04/20/2024 External Device Data [facility] ABSTRACTION Provider, Abstract 04/20/2024 External Device Data [facility] ABSTRACTION Provider, Abstract 04/19/2024 External Device Data [facility] ABSTRACTION Provider, Abstract 04/18/2024 Results Follow-Up [facility] Labor & [address] [place] [address] Giovana Jay APRN-CNM HEPATITIS B SURFACE ANTIGEN, HEPATITIS C ANTIBODY W REFLEX, HIV DETECTION W/REFLX CONFIRMATION, Additional followed-up results: 3 04/15/2024 9:15 AM WIRE CHARGER Office Visit [facility] DISASTER RECOVERY COORDINATOR [address] [facility] [address] [place] [address] Braxton Matias MD Well woman exam with routine gynecological exam (Primary Dx); Screening for cervical cancer; Screening for HPV (human papillomavirus); Screen for STD (sexually transmitted disease); Family history of breast cancer; Miscarriage; Contraceptive education 04/14/2024 9:06 PM WIRE CHARGER - 04/14/2024 9:08 PM WIRE CHARGER Emergency [facility] Emergency Department [address] [place] [address] Discharge Disposition: Left without being seen 04/14/2024 4:45 PM WIRE CHARGER - 04/14/2024 5:12 PM WIRE CHARGER Hospital Encounter [facility] OB Triage [address] [place] [address] Braxton Matias MD Discharge Disposition: Home or Self Care 04/14/2024 Travel 04/14/2024 Telephone [facility] Women's Health Clinical Support [address] [place] [address] Satya Donis RN Question 04/01/2024 Orders Only [facility] DISASTER RECOVERY COORDINATOR [facility] [place] [address] [address] [place] [address] Braxton Matias MD Acute cystitis without hematuria (Primary Dx) 03/29/2024 External Device Data [facility] ABSTRACTION Provider, Abstract from Last 3 Months Immunizations Immunization Administration Dates Next Due Influenza Seasonal Unspecified Formulation IM Family History * Patient is adopted Medical History Relation Name Comments Other Mother N/A Im Adopted and dont have a family medical history Relation Name Status Comments Mother N/A Alive Social History Tobacco Use Types Packs/Day Years Used Date Smoking Tobacco: Never Smokeless Tobacco: Never Tobacco Cessation:Counseling Given: Not Answered Alcohol Use Standard Drinks/Week Comments Yes 0 (1 standard drink = 0.6 oz pur e alcohol) 1-2 drinks a month Feeling Safe Answer Date Recorded Are you in a relationship wi th someone who hurts you emotionally and/or physically? No 04/14/2024 Comments No Sex and Gender Information Value Date Recorded Sex Assigned at Not on file Legal Sex Female 11:11 AM CDT Gender Identity Female 04/13/2024 6:59 PM WIRE CHARGER Sexual Orientation Not on file Last Filed Vital Signs Vital Sign Reading Time Taken Comments Blood Pressure 120/78 06/03/2024 11:21 AM CDT Pulse 91 04/14/2024 8:58 PM WIRE CHARGER Temperature 37 C (98.6 F) 04/14/2024 8:58 PM WIRE CHARGER Respiratory Rate 18 04/14/2024 8:58 PM WIRE CHARGER Oxygen Saturation 100% 04/14/2024 8:58 PM WIRE CHARGER Inhaled Oxygen Concentration - - Weight 77.1 kg (170 lb) 06/03/2024 11:21 AM CDT Height 160 cm (5' 3 ) 06/03/2024 11:21 AM CDT Body Mass Index 30.11 06/03/2024 11:21 AM CDT Plan of Treatment Upcoming Encounters Date Type Department Care Team (Late st Contact Info) Description 12/15/2024 Hospital Encounter [facility] OB Triage [address] [place] [address] Braxton Matias MD [address] [facility] [address] [place] [address] Health Maintenance Due Date Last Done Comments HEPATITIS B VACCINES (1 of 3 - 19+ 3-dose series) 2013 HPV/Cotest (21-29) 09/06/2015 COVID-19 Vaccine (2023- season) 2023 10/24/2020, 10/03/2020 CERVICAL CANCER SCREENING 04/15/2027 PAP SMEAR 04/15/2027 04/15/2024, 11/28/2019 DTAP/TDAP/TD VACCINES (3 - Td or Tdap) 10/03/2030 10/03/2020, 07/31/2018 INFLUENZA VACCINE Completed 12/30/2023, 12/08/2018 HPV VACCINES Aged Out No longer eligi ble based on patient's age to complete this topic Procedures Procedure Name Priority Date/Time Associated Diagnosis Comments VAGINOSIS/VAGINITIS PANEL BASIC Routine 06/03/2024 12:31 PM CDT UTI symptoms Urethral bleeding URINE CULTURE Routine 06/03/2024 12:31 PM CDT UTI symptoms RPR Routine 04/15/2024 10:47 AM WIRE CHARGER Screen for STD (sexually transmitted disease) HIV DETECTION W/REFLX CONFIRMATION Routine 04/15/2024 10:47 AM WIRE CHARGER Screen for STD (sexually transmitted disease) HEPATITIS C ANTIBODY Routine 04/15/2024 10:47 AM WIRE CHARGER Screen for STD (sexually transmitted disease) HEPATITIS B SURFACE ANTIGEN Routine 04/15/2024 10:47 AM WIRE CHARGER Screen for STD (sexually transmitted disease) CERV/VAG CYTO AGE BASED SCREEN PAP Routine 04/15/2024 10:05 AM WIRE CHARGER Screening for cervical cancer Screening for HPV (human papillomavirus) VAGINOSIS/VAGINITIS PANEL PLUS Routine 04/15/2024 10:05 AM WIRE CHARGER Screen for STD (sexually transmitted disease) POC , URINE Routine 04/14/2024 4:51 PM WIRE CHARGER from Last 3 Months Results * (ABNORMAL) VAGINOSIS/VAGINITIS PANEL BASIC (06/03/2024 12:31 PM CDT) BACTERIAL VAGINOSIS NEGATIVE NEGATIVE [facility] VAISHALI SPECIES DETECTED(A) NOT DETECTED [facility] VAISHALI GLABRATA NOT DETECTED NOT DETECTED [facility] Comment: Vaishali species C. albicans, C. tropicalis, C. parapsilosis, and/or C. dubliniensis can be detected, but not differentiated, in the Vaishali spp. result. TRICHOMONAS VAGINALIS (TV), TMA NOT DETECTED NOT DETECTED [facility] Comment: Test Performed at: [facility] [address] [place] [address] Jana Garcia MD Genital SPECIMEN FROM VAGINA / Unknown 06/03/2024 12:31 PM CDT 06/04/2024 8:14 AM CDT Roge Alexandre MD MICROBIOLOGY - GENERAL ORDERABLE S Final Result Performing Organization Address City/[facility]/ZIP Co de Phone Number [facility] [phone] [facility] [address] [place] [address] * URINE CULTURE (06/03/2024 12:31 PM CDT) URINE CULTURE SEE NOTE [facility] Comment: CULTURE, URINE, ROUTINE Micro Number: [id number] Test Status: Final Specimen Source: Urine, clean catch Specimen Quality: Adequate Result: Less than 10,000 CFU/mL of single Gram positive organism isolated. No further testing will be performed. If clinically indicated, recollection using a method to minimize contamination, with prompt transfer to Urine Culture Transport Tube, is recommended. COMMENT: No group B Streptococcus isolated Test Performed at: [facility] [id number] [place] [phone] Jana Garcia MD Urine URINE SPECIMEN OBTAINED BY CLEAN CATCH PROCEDURE / Unknown 06/03/2024 12:31 PM CDT 06/04/2024 8:15 AM CDT Roge Alexandre MD MICROBIOLOGY - GENERAL ORDERABLE S Final Result Performing Organization Address City/[facility] Co de Phone Number [facility] [phone] [facility] [address] [place] [address] * HIV DETECTION W/REFLX CONFIRMATION (04/15/2024 10:47 AM WIRE CHARGER) HIV-1/2 AG AND AB SCREEN NON-REACT JOSE NON-REACT JOSE [facility] Comment: HIV-1 antigen and HIV-1/HIV-2 antibodies were not detected. There is no laboratory evidence of HIV infection. PLEASE NOTE: This information has been disclosed to you from records whose confidentiality may be protected by state law. If your state requires such protection, then the state law prohibits you from making any further disclosure of the information without the specific written consent of the person to whom it pertains, or as otherwise permitted by law. A general authorization for the release of medical or other information is NOT sufficient for this purpose. For additional information please refer to http://Convergin.ThoughtLeadr/faq/SAT467 (This link is being provided for informational/ educational purposes only.) The performance of this assay has not been clinically validated in patients less than 2 years old. Test Performed at: [facility] [address] [place] [phone] Jana Garcia MD Blood 04/15/2024 10:4 7 AM WIRE CHARGER 04/15/2024 10:47 AM WIRE CHARGER Braxton Matias MD CHEMISTRY ORDERABLES Final Re sult Performing Organization Address [facility] de Phone Number [facility] [phone] [facility] [address] * HEPATITIS B SURFACE ANTIGEN (04/15/2024 10:47 AM WIRE CHARGER) HEPATITIS B SURFACE AG NON-REACTI VE NON-REACTI VE [facility] Comment: For additional information, please refer to http://Convergin.ThoughtLeadr/faq/IQA500 (This link is being provided for informational/ educational purposes only.) Test Performed at: [facility] [address] [place] [phone] Jana Garcia MD Blood 04/15/2024 10:4 7 AM WIRE CHARGER 04/15/2024 10:47 AM WIRE CHARGER Braxton Matias MD CHEMISTRY ORDERABLES Final Re sult Performing Organization Address [facility] Co de Phone Number [facility] [phone] [facility] [address] * HEPATITIS C ANTIBODY W REFLEX (04/15/2024 10:47 AM WIRE CHARGER) HEPATITIS C AB NON-REACTI VE NON-REACT JOSE [facility] Comment: HCV antibody was non-reactive. There is no laboratory evidence of HCV infection. In most cases, no further action is required. However, if recent HCV exposure is suspected, a test for HCV RNA (test code 07612) is suggested. For additional information please refer to http://education.ThoughtLeadr/faq/CPX50b6 (This link is being provided for informational/ educational purposes only.) Test Performed at: [facility] [address] [place] [phone] Jana Garcia MD Blood 04/15/2024 10:4 7 AM WIRE CHARGER 04/15/2024 10:47 AM WIRE CHARGER Braxton Matias MD CHEMISTRY ORDERABLES Final Re sult Performing Organization Address [facility] Co de Phone Number [facility] [phone] [facility] [address] * RPR (04/15/2024 10:47 AM WIRE CHARGER) Pathologist [facility] RPR NON-REACTI VE NON-REACTI VE [facility] Comment: No laboratory evidence of syphilis. If recent exposure is suspected, submit a new sample in 2-4 weeks. Test Performed at: [facility] [phone] Jana Garcia MD Blood 04/15/2024 10:4 7 AM WIRE CHARGER 04/15/2024 10:47 AM WIRE CHARGER Braxton Matias MD CHEMISTRY ORDERABLES Final Re sult Performing Organization Address City/[facility]/ZIP Co de Phone Number [facility] [phone] [facility] [address] * CERV/VAG CYTO AGE BASED SCREEN PAP (04/15/2024 10:05 AM WIRE CHARGER) COMMENT (PAP): Sasha Combs Comment: This order for age-based cervical cancer and STI screening follows ACOG guidelines(PB 168, 140, OYT277). See individual assays for performing site location. CLINICAL INFORMATION Sasha Combs Comment:None given LAST MENSTRUAL PERIOD Sasha Combs Comment:NONE GIVEN PREV PAP: Sasha Combs Comment:NONE GIVEN PREV BX: Sasha Combs Comment:NONE GIVEN SOURCE Sasha Combs Comment:Endocervix ADEQUACY: Sasha Combs Comment: Satisfactory for evaluation. Endocervical/transformation zone component present. Age and/or menstrual status not provided PAP INTERP Sasha Combs Comment: Cytology Results: Negative for intraepithelial lesion or malignancy. COMMENT (PAP TEST) Q uest Ember Combs Comment: This case could not be evaluated with computer assisted technology. The slide was manually screened according to routine procedures. BUILDING COORDINATOR: Gayla Combs Comment: BES, CT(ASCP) CT screening location: [address] [address] [address] [place] Ember Combs Comment: EXPLANATORY NOTE: The Pap is a screening test for cervical cancer. It is not a diagnostic test and is subject to false negative and false positive results. It is most reliable when a satisfactory sample, regularly obtained, is submitted with relevant clinical findings and history, and when the Pap result is evaluated along with historic and current clinical information. Test Performed at: [facility] [address] [address] [place] [address] Jana Garcia Genital SWAB OF ENDOCERVIX / Unknown 04/15/2024 10:05 AM WIRE CHARGER 04/15/2024 10:52 PM WIRE CHARGER us Braxton Matias MD PATHOLOGY/CYTOLOGY ORDERABLES Final Result [facility] [phone] [facility] [address] [address] [address] [place] [address] * (ABNORMAL) VAGINOSIS/VAGINITIS PANEL PLUS (04/15/2024 10:05 AM WIRE CHARGER) BACTERIAL VAGINOSIS POSITIVE(A) NEGATIVE [facility] VAISHALI SPECIES NOT DETECTED NOT DETECTED [facility] VAISHALI GLABRATA NOT DETECTED NOT DETECTED [facility] Comment: Vaishali species C. albicans, C. tropicalis, C. parapsilosis, and/or C. dubliniensis can be detected, but not differentiated, in the Vaishali spp. result. TRICHOMONAS VAGINALIS (TV), TMA NOT DETECTED NOT DETECTED [facility] CHLAMYDIA TRACHOMATIS RNA, TMA, UROGENITAL NOT DETECTED NOT DETECTED [facility] NEISSERIA GONORRHOEAE RNA, TMA, UROGENITAL NOT DETECTED NOT DETECTED [facility] Comment: For additional information, please refer to https://education.ThoughtLeadr/faq/YGZ617 (This link is being provided for information/ educational purposes only.) Test Performed at: [facility] [address] [place] [address] Jana Garcia MD Genital SPECIMEN FROM VAGINA / Unknown 04/15/2024 10:05 AM WIRE CHARGER 04/15/2024 10:52 PM WIRE CHARGER Braxton Matias MD [facility]BIOLOGY - [facility] Final Result [facility] [phone] [facility] [address] [place] [address] * POC , URINE (04/14/2024 4:51 PM WIRE CHARGER) [facility] HCG QUAL URINE Negative Negative 04/14/2024 4:51 PM WIRE CHARGER [facility] Urine 04/14/2024 4:51 PM WIRE CHARGER 04/14/2024 4:58 PM WIRE CHARGER Narrative [facility] - 04/14/2024 4:51 PM WIRE CHARGER Positive : Result is greater than or equal to 25 mIU/mL Negative: Result is less than 25 mIU/mL Invalid: Result is borderline or indeterminate,send to lab for serum test methodology. Braxton Matias MD POINT OF CARE TESTING Final R esult [facility]# [id number] [address] [place] [address] from Last 3 Months Insurance [facility] RX [employer] RX Member Subscriber Plan / Payer (Ef fective 2024-Present) Name:Enedina Urbina Relation to Subscriber:Spouse Subscriber ID:Not on file Payer ID:Not on file Type:RX Commercial Address: [place] RX [employer] RX Member Subscriber Plan / Payer (Ef fective 2024-Present) Name:Enedina Urbina Relation to Subscriber:Self Name:Enedina Urbina Subscriber ID:Not on file Payer ID:Not on file Type:Not on file Address: [place] Care Teams Porcelain Mixer Relationship Specialty Start Date End Date Tarah Samson MD [address] [place] [place] [address] PCP - General Family Practice 07/28/19
--- OUTSIDE RECORDS SUMMARY | 2024-06-23 16:17 | XMS_ITS | Patient Health Record ---
Author Organization [facility] [employer] Address [address] [place] [address] Care Team Providers Care Hide Buyer Name Role Phone Shahana Jean Baptiste Primary Care Provider Haim Mendiola Unavailable [phone] Migration, Provider Unavailable Unavailable Allergies Allergen (clinical drug ingredient) Drug/Non Drug Allergy documented on EMR Reaction Allergy Type Onset Date Status Latex Latex Unknown Allergy 05/15/2023 Active Results Component Value Reference Range Notes DRUG SCREEN, 14 DRUGS (DETEC TIMED), URINE Reviewed date:07/09/2023 12:00:00 AM Interpretation: Performing Lab: Notes/Report: Amphetamine positive Barbiturates negative Benzodiazipine negative Buprenorphine negative Cocaine negative MDMA/Ectasy negative Methadone negative Methamphetamine negative Morphine negative note 90, pos amp Oxycodone negative Phenocyclidine negative THC negative UDT Reviewed date:02/03/2024 04:42:40 PM Interpretation: Performing Lab: Notes/Report: THC N 0 - 50 ng/ml Cocaine N 0 - 300 ng/ml Amphetamine P 0 - 1000 ng/ml Buprenorphine (BUP) N 0 - 10 ng/ml Secobarbital (Bar) N 0 - 300 ng/ml Oxazepam (BZO) N 0 - 300 ng/ml 3-zipcpxqzyu-6,5-vtlpzojq-6, 3-diphenylpyrrolidine (EDDP) N 0 - 300 ng/ml Methamphetamine (MET) N 0 - 1000 ng/ml Methylenedioxymethamphetamine (MDMA) N 0 - 500 ng/ml Morphine (MOP 300/[id number]) N 0 - 300 ng/ml Methadone (MTD) N 0 - 300 ng/ml Phencyclidine (PCP) N 0 - 25 ng/ml Nortriptyline (TCA) N 0 - 1000 ng/ml Oxycodone N 0 - 300 ng/ml x N 0 - 300 ng/ml UDT Reviewed date:01/06/2024 01:48:51 PM Interpretation: Performing Lab: Notes/Report: THC N 0 - 50 ng/ml Cocaine N 0 - 300 ng/ml Amphetamine P 0 - 1000 ng/ml Buprenorphine (BUP) N 0 - 10 ng/ml Secobarbital (Bar) N 0 - 300 ng/ml Oxazepam (BZO) N 0 - 300 ng/ml 6-wxelbtuwbl-4,3-hygkdhho-2, 3-diphenylpyrrolidine (EDDP) N 0 - 300 ng/ml Methamphetamine (MET) N 0 - 1000 ng/ml Methylenedioxymethamphetamine (MDMA) N 0 - 500 ng/ml Morphine (MOP 300/[id number]) N 0 - 300 ng/ml Methadone (MTD) N 0 - 300 ng/ml Phencyclidine (PCP) N 0 - 25 ng/ml Nortriptyline (TCA) N 0 - 1000 ng/ml Oxycodone N 0 - 300 ng/ml x N 0 - 300 ng/ml UDT Reviewed date:12/09/2023 10:21:12 AM Interpretation: Performing Lab: Notes/Report: THC N 0 - 50 ng/ml Cocaine N 0 - 300 ng/ml Amphetamine P 0 - 1000 ng/ml Buprenorphine (BUP) N 0 - 10 ng/ml Secobarbital (Bar) N 0 - 300 ng/ml Oxazepam (BZO) N 0 - 300 ng/ml 0-rxmxolfhzh-9,0-strpifsi-5, 3-diphenylpyrrolidine (EDDP) N 0 - 300 ng/ml Methamphetamine (MET) N 0 - 1000 ng/ml Methylenedioxymethamphetamine (MDMA) N 0 - 500 ng/ml Morphine (MOP 300/[id number]) N 0 - 300 ng/ml Methadone (MTD) N 0 - 300 ng/ml Phencyclidine (PCP) N 0 - 25 ng/ml Nortriptyline (TCA) N 0 - 1000 ng/ml Oxycodone N 0 - 300 ng/ml x N 0 - 300 ng/ml UDT Reviewed date:08/07/2023 03:19:50 PM Interpretation: Performing Lab: Notes/Report: THC negative 0 - 50 ng/ml Cocaine negative Amphetamine positive Buprenorphine (BUP) negative Secobarbital (Bar) negative Oxazepam (BZO) negative 6-ukxpwglufd-3,0-mmnsaspb-9, 3-diphenylpyrrolidine (EDDP) negative Methamphetamine (MET) negative Methylenedioxymethamphetamine (MDMA) negative Morphine (MOP 300/KVO1236) negative Methadone (MTD) negative Phencyclidine (PCP) negative Nortriptyline (TCA) negative x negative UDT Reviewed date:10/07/2023 04:28:45 PM Interpretation: Performing Lab: Notes/Report: THC N 0 - 50 ng/ml Cocaine N 0 - 300 ng/ml Amphetamine P 0 - 1000 ng/ml Buprenorphine (BUP) N 0 - 10 ng/ml Secobarbital (Bar) N 0 - 300 ng/ml Oxazepam (BZO) N 0 - 300 ng/ml 9-rajawoeknd-4,3-gwpvrzjw-3, 3-diphenylpyrrolidine (EDDP) N 0 - 300 ng/ml Methamphetamine (MET) N 0 - 1000 ng/ml Methylenedioxymethamphetamine (MDMA) N 0 - 500 ng/ml Morphine (MOP 300/[id number]) N 0 - 300 ng/ml Methadone (MTD) N 0 - 300 ng/ml Phencyclidine (PCP) N 0 - 25 ng/ml Nortriptyline (TCA) N 0 - 1000 ng/ml Oxycodone N 0 - 300 ng/ml x N 0 - 300 ng/ml Reason For Referral No Information Medications Medication SIG (Take, Route, Frequency, Duration) Notes Start Date End Date Status hydrOXYzine HCl 10 MG 1 tablet Oral tw a day for 30 days Active cloNIDine HCl 0.1 MG 1 tablet every nigh t Oral Once a day for 90 days Active Amphetamine-Dextroamphet ER 30 MG 1 capsule in the morning Oral Once a day for 30 days 05/20/2024 Active Escitalopram Oxalate 20 MG 1 tablet Oral Once a day for 90 days Active Atomoxetine HCl 80 MG 1 capsule in the m orning Orally Once a day for 90 days Active Social History Tobacco Use: Social History Observation Description Date Details (start date - stop date) Never Smoker NA - NA Sex Assigned At : Social History Observation Description Sex Assigned At Female Tobacco Control (Standard) Question Answer Notes Tobacco use: Nonsmoker Problems Problem Type SNOMED Code ICD Code Onset Dates Problem Status W/U Status Risk Notes Problem Severe recurrent major depression without psychotic features (04665071) Major depressive disorder, recurrent 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.2) Active confirmed Problem Attention deficit hyperactivity disorder, combined type (52078792) Attention-deficit hyperactivity disorder, combined type (F90.2) Active confirmed Problem [id number] DAVE (generalized anxiety disorder) (F41.1) Active confirmed Vital Signs Heart Rate 88 /min 05/04/2024 Height-cm 156.21 cm 05/04/2024 Blood pressure diastolic 93 mm Hg 05/04/2024 Weight-kg 77.11 kg 05/04/2024 Height 61.50 in 05/04/2024 Blood pressure systolic 140 mm Hg 05/04/2024 Weight 170 lbs 05/04/2024 BMI 31.6 kg/m2 05/04/2024 Encounters Encounter Location Date Provider Diagnosis [facility] [employer] [place] [address] [address] 07/06/2023 Provider Migration Attention-deficit hyperactivity disorder, combined type F90.2 [facility] [employer] [place] [address] [address] 07/09/2023 Haim Bettye Obsessive-compulsive disorder, unspecified F42.9 ; Attention-deficit hyperactivity disorder, combined type F90.2 and Major depressive disorder, recurrent severe without psychotic features F33.2 [facility] [employer] [facility] [address] [address] 08/07/2023 Haim Bettye Attention-deficit hyperactivity disorder, combined type F90.2 and Major depressive disorder, recurrent severe without psychotic features F33.2 [facility] [employer] [facility] [address] [address] 10/07/2023 Haim Bettye Attention-deficit hyperactivity disorder, combined type F90.2 and Major depressive disorder, recurrent severe without psychotic features F33.2 [facility] [employer] [facility] [address] [address] 12/09/2023 Haim Bettye Attention-deficit hyperactivity disorder, combined type F90.2 and Major depressive disorder, recurrent severe without psychotic features F33.2 [facility] [employer] [facility] [address] [facility] [address] [address] 01/06/2024 Haim Bettye Attention-deficit hyperactivity disorder, combined type F90.2 and Major depressive disorder, recurrent severe without psychotic features F33.2 [facility] [address] [place] [address] 02/03/2024 Haim Bettye Attention-deficit hyperactivity disorder, combined type F90.2 and Major depressive disorder, recurrent severe without psychotic features F33.2 [facility] [address] [place] [address] 05/04/2024 Haim Bettye Attention-deficit hyperactivity disorder, combined type F90.2 ; Major depressive disorder, recurrent severe without psychotic features F33.2 and DAVE (generalized anxiety disorder) F41.1 [facility] [address] [place] [address] 05/20/2024 Haim Bettye Attention-deficit hyperactivity disorder, combined type F90.2 ; Major depressive disorder, recurrent severe without psychotic features F33.2 ; DAVE (generalized anxiety disorder) F41.1 and Encounter for screening for depression Z13.31 [facility] [address] [place] [address] 07/06/2023 Provider Migration [facility], [facility] [address] [place] [address] 07/07/2023 Provider Migration [facility], [facility] [address] [place] [address] 07/09/2023 Provider Migration [facility], [facility] [address] [place] [address] 07/18/2023 Provider Migration [facility], [facility] [address] [place] [address] 07/19/2023 Provider Migration [facility], [facility] [address] [place] [address] 08/26/2023 Haim Bettye Attention-deficit hyperactivity disorder, combined type F90.2 [facility], [facility] [address] [place] [address] 05/04/2024 Haim Bettye [facility], [facility] [address] [place] [address] 08/14/2023 Haim Bettye [facility], [facility] [address] [place] [address] 08/26/2023 Haim Bettye Attention-deficit hyperactivity disorder, combined type F90.2 [facility], [facility] [address] [place] [address] 09/09/2023 Haim Bettye Attention-deficit hyperactivity disorder, combined type F90.2 [facility], [facility] [address] [place] [address] 09/10/2023 Haim Bettye Attention-deficit hyperactivity disorder, combined type F90.2 [facility], [facility] [address] [place] [address] 10/07/2023 Haim Bettye [facility], [facility] [address] [place] [address] 10/12/2023 Haim Bettye Attention-deficit hyperactivity disorder, combined type F90.2 [facility], [facility] [address] [place] [address] 11/09/2023 Haim Bettye Attention-deficit hyperactivity disorder, combined type F90.2 [facility], [facility] [address] [place] [address] 11/18/2023 Haim Bettye Attention-deficit hyperactivity disorder, combined type F90.2 [facility], [facility] [address] [place] [address] 12/01/2023 Haim Bettye [facility], [facility] [address] [place] [address] 12/09/2023 Haim Bettye [facility], [facility] [address] [place] [address] 12/14/2023 Haim Bettye Attention-deficit hyperactivity disorder, combined type F90.2 [facility], [facility] [address] [place] [address] 03/16/2024 Haim Bettye Attention-deficit hyperactivity disorder, combined type F90.2 [facility], [facility] [address] [place] [address] 03/21/2024 Haim Bettye Attention-deficit hyperactivity disorder, combined type F90.2 [facility], [facility] [address] [place] [address] 04/30/2024 Haim Wen Attention-deficit hyperactivity disorder, combined type F90.2 [facility] [employer] [facility] [address] [place] [address] 05/20/2024 Haim Wen [facility] [employer] [facility] [address] [place] [address] 05/24/2024 Haim Wen Assessments Encounter Date Diagnosis (ICD Code) Assessment Notes Treatment Notes Treatment Clinical Notes Section Notes 08/26/2023 Attention-defic it hyperactivity disorder, combined type (ICD-10 - F90.2) 09/09/2023 Attention-defic it hyperactivity disorder, combined type (ICD-10 - F90.2) 09/10/2023 Attention-defic it hyperactivity disorder, combined type (ICD-10 - F90.2) 08/07/2023 Attention-defic it hyperactivity disorder, combined type (ICD-10 - F90.2) Electronic Prior Authorization was requested for Qelbree 200 MG Capsule Extended Release 24 Hour. Provider can order medication once approval received. Major Depressive Disorder - Assessment: Patient reports ongoing stressors related to her relationship with her and struggles with communication. She is currently on escitalopram 20 mg daily. - Plan: Continue escitalopram 20 mg daily. Encourage the patient to continue attending individual counseling sessions to address relationship and communication issues. Generalized Anxiety Disorder - Assessment: Patient reports anxiety related to her relationship and communication with her . - Plan: Continue monitoring anxiety levels during follow-up visits. Encourage the patient to utilize coping strategies learned in therapy. Attention Deficit Hyperactivity Disorder (ADHD) - Assessment: Patient reports increased irritability in the evenings when her medications start to wear off. She is currently on Adderall ER 20 mg daily and Adderall 5 mg PRN. - Plan: Consider adding a non-stimulant medication such as atomoxetine (Strattera) to provide 24-hour coverage and potentially reduce the need for PRN Adderall. Discuss this option with the patient during the next visit. 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 - Plan: Encourage the patient to continue focusing on her new job and finding fulfillment in her work. Monitor her adjustment to the new job during follow-up visits. Marital Issues - Assessment: Patient reports ongoing marital conflict and communication difficulties with her , who is not supportive of her ADHD diagnosis and struggles to understand her needs. - Plan: Encourage the patient to continue attending individual counseling sessions to address relationship and communication issues. Consider recommending couples therapy if appropriate and if both parties are willing to participate. 02/03/2024 Attention-defic it hyperactivity disorder, combined type (ICD-10 - F90.2) Electronic Prior Authorization was requested for Qelbree 200 MG Capsule Extended Release 24 Hour. Provider can order medication once approval received. Divorce-related Stress - Assessment: Patient reports signing divorce papers last Thursday before [employer] and experiencing emotional difficulties related to family events and financial concerns. - Plan: - Encourage the patient to seek support from friends, family, or a therapist to help cope with the emotional challenges of the divorce process. Financial Stress - Assessment: Patient reports being $500 short per month and considering picking up extra shifts or a PRN position at [employer]. - Plan: - Encourage the patient to explore available financial resources and discuss options with management at work to help alleviate financial stress, including the possibility of a PRN position on a different floor. Hypertension - Assessment: Blood pressure measured at 138/93, indicating mild hypertension. - Plan: - Monitor blood pressure regularly. - Encourage lifestyle modifications, such as a healthy diet, regular exercise, and stress management techniques. Anxiety - Assessment: Patient reports feeling anxious, currently taking hydroxyzine as needed. - Plan: - Continue hydroxyzine as needed for anxiety. - Encourage the patient to practice relaxation techniques, such as deep breathing exercises or meditation. ADD-ADHD - Assessment: Patient reports that ADD-ADHD is well-controlled with atomoxetine and does not need Adderall. - Plan: - Continue atomoxetine as prescribed. - Monitor for any changes in symptoms or side effects. Depression - Assessment: Patient is currently taking escitalopram 20 mg daily and reports no need for a refill at this time. - Plan: - Continue escitalopram as prescribed. - Monitor for any changes in mood or depressive symptoms. Medication Coverage - Plan: - Patient will check if their current medications are covered by their work insurance. - Encourage the patient to communicate with their insurance provider and pharmacy to ensure proper coverage and access to necessary medications. Follow-up - Plan: - Discuss the possibility of scheduling follow-up appointments every 2-3 months, depending on insurance coverage and patient preference. 03/16/2024 Attention-defic it hyperactivity disorder, combined type (ICD-10 - F90.2) 03/21/2024 Attention-defic it hyperactivity disorder, combined type (ICD-10 - F90.2) 04/30/2024 Attention-defic it hyperactivity disorder, combined type (ICD-10 - F90.2) 05/04/2024 Attention-defic it hyperactivity disorder, combined type (ICD-10 - F90.2) Electronic Prior Authorization was requested for Qelbree 200 MG Capsule Extended Release 24 Hour. Provider can order medication once approval received. 05/20/2024 Attention-defic it hyperactivity disorder, combined type (ICD-10 - F90.2) Electronic Prior Authorization was requested for Qelbree 200 MG Capsule Extended Release 24 Hour. Provider can order medication once approval received. Electronic Prior Authorization was requested for cloNIDine ER 0.17 MG Tablet Extended Release 24 Hour. Provider can order medication once approval received. 07/06/2023 Attention-defic it hyperactivity disorder, combined type (ICD-10 - F90.2) 10/07/2023 Attention-defic it hyperactivity disorder, combined type (ICD-10 - F90.2) Electronic Prior Authorization was requested for Qelbree 200 MG Capsule Extended Release 24 Hour. Provider can order medication once approval received. Marital Issues and Emotional Stress - Assessment: Patient reports her 's decision to divorce and the impact on her emotional well-being. The patient feels she has improved in setting boundaries and standing up for herself, which has caused some conflict. - Plan: - Continue individual counseling to address emotional stress and coping strategies. - Encourage open communication with and consider revisiting marriage counseling if both parties are willing. ADHD - Assessment: Patient is currently on Adderall 20 mg daily and 5 mg as needed. Patient requests to increase the as-needed dose to 10 mg for night shifts (4 times a week) and reports taking 10 mg instead of 5 mg during night shifts. - Plan: Update prescription for Adderall to reflect the requested change. Depression - Assessment: Patient is currently on citalopram and has only 10 pills left. - Plan: Refill prescription for citalopram. Insurance and Medication Coverage - Assessment: Patient needs to address insurance changes due to the impending divorce. 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 - Plan: Encourage patient to contact [employer]'s insurance department for assistance and guidance. Follow-up - Plan: Schedule a follow-up appointment in two months to reassess patient's emotional well-being, medication effectiveness, and any changes in her situation. Other Medications - Assessment: Patient is no longer taking Colbrey due to side effects. Patient is currently taking Strattera (atomoxetine) 80 mg and has a three-month supply. 10/12/2023 Attention-defic it hyperactivity disorder, combined type (ICD-10 - F90.2) 11/09/2023 Attention-defic it hyperactivity disorder, combined type (ICD-10 - F90.2) 11/18/2023 Attention-defic it hyperactivity disorder, combined type (ICD-10 - F90.2) 12/09/2023 Attention-defic it hyperactivity disorder, combined type (ICD-10 - F90.2) Electronic Prior Authorization was requested for Qelbree 200 MG Capsule Extended Release 24 Hour. Provider can order medication once approval received. ADHD - Assessment: Patient reports difficulty obtaining medication due to back order. Patient has only been taking extended release on work days. - Plan: - Increase Adderall XR dosage to 30 mg. - Continue atomoxetine at 80 mg. Major Depressive Disorder - Assessment: Patient reports worsened depression due to situational factors (divorce, increased responsibilities) . Patient feels unable to get on top of things and lacks motivation. - Plan: - Maintain escitalopram at 20 mg. - Reevaluate next month and consider adding bupropion if depression persists. Divorce and Coping - Assessment: Patient is currently undergoing a divorce; spouse moved out in middle of September. Patient has two children (3 years old and 17 months old) with 50-50 custody arrangement. Patient reports coping fairly well, recognizing sadness but not feeling overwhelmed. - Plan: - Encourage continued counseling with Ligia Lombardo to support emotional well-being. Medication Management - Assessment: Escitalopram prescription was sent, and patient has one more month of supply at home. Atomoxetine prescription was sent two days ago. - Plan: - Monitor patient's medication adherence and effectiveness during follow-up visits. Home Management - Assessment: Patient reports difficulty keeping up with household responsibilities due to taking on all financial and home management tasks. 01/06/2024 Major depressive disorder, recurrent severe without psychotic features (ICD-10 - F33.2) Anxiety related to divorce - Assessment: Patient reports increased anxiety and panic attacks due to the ongoing divorce process, especially when alone at home without children. Patient describes feeling chest heaviness and racing heart during panic attacks. - Plan: - Prescribe hydroxyzine 10 mg PRN for anxiety. - Instruct patient to take it when anxiety starts to ramp up, especially when alone. - If anxiety remains high after an hour, the patient may repeat the dose. - Encourage lifestyle adjustments and engagement in hobbies to help manage anxiety. - Suggested creating a list of 50 activities for distraction when alone. ADHD - Assessment: Patient is currently on amphetamine and atomoxetine for ADHD management. - Plan: - Continue current medications. - Refill amphetamine (Adderall) prescription. Depression - Assessment: Patient is currently on escitalopram (Lexapro) for depression management. Patient reports feeling unmotivated and withdrawn. - Plan: - Refill escitalopram prescription. Pharmacy preferences - Assessment: Patient requests all medications to be sent to [facility] in [place]. Patient mentions difficulty obtaining Adderall at previous pharmacy. - Plan: - Make [facility] the primary pharmacy and send all prescriptions there. Insurance change - Assessment: Patient will be switching to [employer] insurance soon due to employment with [employer]. - Plan: - Patient to verify if the current provider is covered under the new insurance plan. - If not, the patient may need to find an in-network provider or explore [id number] benefits. Follow-up - Plan: - Schedule a follow-up appointment in one month. - Patient to confirm insurance coverage before the appointment. 01/06/2024 Attention-defic it hyperactivity disorder, combined type (ICD-10 - F90.2) Electronic Prior Authorization was requested for Qelbree 200 MG Capsule Extended Release 24 Hour. Provider can order medication once approval received. Anxiety related to divorce - Assessment: Patient reports increased anxiety and panic attacks due to the ongoing divorce process, especially when alone at home without children. Patient describes feeling chest heaviness and racing heart during panic attacks. - Plan: - Prescribe hydroxyzine 10 mg PRN for anxiety. - Instruct patient to take it when anxiety starts to ramp up, especially when alone. - If anxiety remains high after an hour, the patient may repeat the dose. - Encourage lifestyle adjustments and engagement in hobbies to help manage anxiety. - Suggested creating a list of 50 activities for distraction when alone. ADHD - Assessment: Patient is currently on amphetamine and atomoxetine for ADHD management. - Plan: - Continue current medications. - Refill amphetamine (Adderall) prescription. Depression - Assessment: Patient is currently on escitalopram (Lexapro) for depression management. Patient reports feeling unmotivated and withdrawn. - Plan: - Refill escitalopram prescription. Pharmacy preferences - Assessment: Patient requests all medications to be sent to [facility] in [place]. Patient mentions difficulty obtaining Adderall at previous pharmacy. - Plan: - Make [facility] the primary pharmacy and send all prescriptions there. Insurance change - Assessment: Patient will be switching to [employer] insurance soon due to employment with [employer]. - Plan: - Patient to verify if the current provider is covered under the new insurance plan. - If not, the patient may need to find an in-network provider or explore [id number] benefits. Follow-up - Plan: - Schedule a follow-up appointment in one month. - Patient to confirm insurance coverage before the appointment. 07/09/2023 Major depressive disorder, recurrent severe without psychotic features (ICD-10 - F33.2) 07/09/2023 Attention-defic it hyperactivity disorder, combined type (ICD-10 - F90.2) 07/09/2023 Obsessive-compu lsive disorder, unspecified (ICD-10 - F42.9) 12/14/2023 Attention-defic it hyperactivity disorder, combined type (ICD-10 - F90.2) 08/07/2023 Major depressive disorder, recurrent severe without psychotic features (ICD-10 - F33.2) Major Depressive Disorder - Assessment: Patient reports ongoing stressors related to her relationship with her and struggles with communication. She is currently on escitalopram 20 mg daily. - Plan: Continue escitalopram 20 mg daily. Encourage the patient to continue attending individual counseling sessions to address relationship and communication issues. Generalized Anxiety Disorder - Assessment: Patient reports anxiety related to her relationship and communication with her . - Plan: Continue monitoring anxiety levels during follow-up visits. Encourage the patient to utilize coping strategies learned in therapy. Attention Deficit Hyperactivity Disorder (ADHD) - Assessment: Patient reports increased irritability in the evenings when her medications start to wear off. She is currently on Adderall ER 20 mg daily and Adderall 5 mg PRN. - Plan: Consider adding a non-stimulant medication such as atomoxetine (Strattera) to provide 24-hour coverage and potentially reduce the need for PRN Adderall. Discuss this option with the patient during the next visit. 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 - Plan: Encourage the patient to continue focusing on her new job and finding fulfillment in her work. Monitor her adjustment to the new job during follow-up visits. Marital Issues - Assessment: Patient reports ongoing marital conflict and communication difficulties with her , who is not supportive of her ADHD diagnosis and struggles to understand her needs. - Plan: Encourage the patient to continue attending individual counseling sessions to address relationship and communication issues. Consider recommending couples therapy if appropriate and if both parties are willing to participate. 02/03/2024 Major depressive disorder, recurrent severe without psychotic features (ICD-10 - F33.2) Divorce-related Stress - Assessment: Patient reports signing divorce papers last Thursday before Thanks and experiencing emotional difficulties related to family events and financial concerns. - Plan: - Encourage the patient to seek support from friends, family, or a therapist to help cope with the emotional challenges of the divorce process. Financial Stress - Assessment: Patient reports being $500 short per month and considering picking up extra shifts or a PRN position at [employer]. - Plan: - Encourage the patient to explore available financial resources and discuss options with management at work to help alleviate financial stress, including the possibility of a PRN position on a different floor. Hypertension - Assessment: Blood pressure measured at 138/93, indicating mild hypertension. - Plan: - Monitor blood pressure regularly. - Encourage lifestyle modifications, such as a healthy diet, regular exercise, and stress management techniques. Anxiety - Assessment: Patient reports feeling anxious, currently taking hydroxyzine as needed. - Plan: - Continue hydroxyzine as needed for anxiety. - Encourage the patient to practice relaxation techniques, such as deep breathing exercises or meditation. ADD-ADHD - Assessment: Patient reports that ADD-ADHD is well-controlled with atomoxetine and does not need Adderall. - Plan: - Continue atomoxetine as prescribed. - Monitor for any changes in symptoms or side effects. Depression - Assessment: Patient is currently taking escitalopram 20 mg daily and reports no need for a refill at this time. - Plan: - Continue escitalopram as prescribed. - Monitor for any changes in mood or depressive symptoms. Medication Coverage - Plan: - Patient will check if their current medications are covered by their work insurance. - Encourage the patient to communicate with their insurance provider and pharmacy to ensure proper coverage and access to necessary medications. Follow-up - Plan: - Discuss the possibility of scheduling follow-up appointments every 2-3 months, depending on insurance coverage and patient preference. 12/09/2023 Major depressive disorder, recurrent severe without psychotic features (ICD-10 - F33.2) ADHD - Assessment: Patient reports difficulty obtaining medication due to back order. Patient has only been taking extended release on work days. - Plan: - Increase Adderall XR dosage to 30 mg. - Continue atomoxetine at 80 mg. Major Depressive Disorder - Assessment: Patient reports worsened depression due to situational factors (divorce, increased responsibilities) . Patient feels unable to get on top of things and lacks motivation. - Plan: - Maintain escitalopram at 20 mg. - Reevaluate next month and consider adding bupropion if depression persists. Divorce and Coping - Assessment: Patient is currently undergoing a divorce; spouse moved out in middle of September. Patient has two children (3 years old and 17 months old) with 50-50 custody arrangement. Patient reports coping fairly well, recognizing sadness but not feeling overwhelmed. - Plan: - Encourage continued counseling with Ligia Lombardo to support emotional well-being. Medication Management - Assessment: Escitalopram prescription was sent, and patient has one more month of supply at home. Atomoxetine prescription was sent two days ago. - Plan: - Monitor patient's medication adherence and effectiveness during follow-up visits. Home Management - Assessment: Patient reports difficulty keeping up with household responsibilities due to taking on all financial and home management tasks. 08/26/2023 Attention-defic it hyperactivity disorder, combined type (ICD-10 - F90.2) Electronic Prior Authorization was requested for Qelbree 200 MG Capsule Extended Release 24 Hour. Provider can order medication once approval received. 10/07/2023 Major depressive disorder, recurrent severe without psychotic features (ICD-10 - F33.2) Marital Issues and Emotional Stress - Assessment: Patient reports her 's decision to divorce and the impact on her emotional well-being. The patient feels she has improved in setting boundaries and standing up for herself, which has caused some conflict. - Plan: - Continue individual counseling to address emotional stress and coping strategies. - Encourage open communication with and consider revisiting marriage counseling if both parties are willing. ADHD - Assessment: Patient is currently on Adderall 20 mg daily and 5 mg as needed. Patient requests to increase the as-needed dose to 10 mg for night shifts (4 times a week) and reports taking 10 mg instead of 5 mg during night shifts. - Plan: Update prescription for Adderall to reflect the requested change. Depression - Assessment: Patient is currently on citalopram and has only 10 pills left. - Plan: Refill prescription for citalopram. Insurance and Medication Coverage - Assessment: Patient needs to address insurance changes due to the impending divorce. 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 - Plan: Encourage patient to contact [employer]'s insurance department for assistance and guidance. Follow-up - Plan: Schedule a follow-up appointment in two months to reassess patient's emotional well-being, medication effectiveness, and any changes in her situation. Other Medications - Assessment: Patient is no longer taking Colbrey due to side effects. Patient is currently taking Strattera (atomoxetine) 80 mg and has a three-month supply. 05/04/2024 DAVE (generalized anxiety disorder) (ICD-10 - F41.1) 05/20/2024 Major depressive disorder, recurrent severe without psychotic features (ICD-10 - F33.2) 05/04/2024 Major depressive disorder, recurrent severe without psychotic features (ICD-10 - F33.2) 05/20/2024 DAVE (generalized anxiety disorder) (ICD-10 - F41.1) 05/20/2024 Encounter for screening for depression (ICD-10 - Z13.31) 05/04/2024 Other Anxiety - Assessment: Patient reports racing thoughts and difficulty sleeping due to anxiety, exacerbated by recent life events including a miscarriage and financial stress. Currently taking hydroxyzine 3-4 times a week, mostly before bed, but reports grogginess when taken during the day. - Plan: - Start clonidine in the evening to help with anxiety and ADHD hyperactivity. - Continue hydroxyzine as needed, primarily at night. Depression - Assessment: Patient reports moderate depression, likely exacerbated by recent life stressors (divorce, miscarriage, financial difficulties). Currently taking escitalopram 20 mg. - Plan: - Continue escitalopram 20 mg. - Monitor for improvement in depressive symptoms. - Reevaluate in one month. Attention Deficit Hyperactivity Disorder (ADHD) - Assessment: Patient reports adequate attention and focus with current medications. Currently taking Adderall 30 mg and atomoxetine 80 mg. - Plan: - Continue Adderall 30 mg and atomoxetine 80 mg. - Add clonidine in the evening to help with ADHD hyperactivity. Weight loss - Assessment: Patient reports significant weight loss (60 pounds since last June, 20 pounds since December) due to controlled diet. - Plan: - Encourage patient to maintain a healthy diet. - Monitor weight. - Reevaluate in one month. Hypertension - Assessment: Blood pressure measured at 140/93, which is elevated. - Plan: - Start clonidine in the evening to help with anxiety and blood pressure. - Instruct patient to monitor blood pressure regularly and report any significant changes. Medication management - Assessment: Patient prefers to picker tender Adderall at the pharmacy where she works in [place] ([employer] [facility]). - Plan: - Send clonidine prescription to [facility]. - Continue to send Adderall and atomoxetine prescriptions locally. - Reevaluate medication management in one month. Follow-up - Plan: Schedule a follow-up appointment in one month to monitor patient's progress and response to clonidine. 05/20/2024 Other Ama Urbina, female patient with history of recent miscarriage, presents with ongoing anxiety, panic attacks, racing thoughts, and sleep difficulties. Generalized Anxiety Disorder with Panic Attacks Assessment: Patient continues to experience anxiety and panic attacks, which she often suppresses due to work and family obligations. She reports racing thoughts and difficulty sleeping. The patient is currently in counseling and finds it helpful for processing her emotions. Recent stressors include a miscarriage, financial issues, and a relationship that has ended. She works 12-hour shifts 3-4 times a week, which may contribute to her stress levels. The patient has been using outdoor activities and keeping busy as coping mechanisms. Plan: - Continue atomoxetine 80 mg (current dose, frequency not specified) - Continue clonidine at night for racing thoughts and sleep difficulties - Initiate prior authorization for extended-releas e clonidine for daytime anxiety management - Discontinue hydroxyzine due to excessive daytime sedation - Advise patient to trial extended-releas e clonidine on a day off work to assess tolerability, if approved - Continue regular counseling sessions with Sahildrluis - Follow up in 2 months Attention Deficit Hyperactivity Disorder (ADHD) Assessment: Patient is currently on Adderall for ADHD management. The medication was previously sent to [facility] pharmacy. Plan: - Continue Adderall (dose not specified) - Resend Adderall prescription to [facility] pharmacy Disclaimer: This note has been transcribed using speech recognition software and serves as a reflection of the patient's visit. While efforts have been made to ensure accuracy, there may be errors, including jig builder helper inaccuracies and misspellings of medication names. This document should not be considered a verbatim record, and any discrepancies should be verified with the provider. Plan Of Treatment Pending Test Test Name Order Date UDT 05/04/2024 Next Appt Details Provider Name:Haim Wen , 07/22/2024 11:15:00 AM, [facility] [address], [facility] [address], [place], [address], Insurance Providers Payer Name Payer Address Payer Phone Subscriber Number Group Number Insured Name Patient Relationship to Insured Coverage Start Date Coverage End Date [facility] - [employer] [address] [place] [address] [id number] AMA URBINA Self - patient is the insured 4 [facility] [address] [address] [place] [address] [phone] [id number] AMA URBINA Self - patient is the insured 5 Medical (General) History Medical History History ICD Code Problems: Adult attention deficit hypera ctivity disorder Attention deficit hyperactivity disorder , combined type Lymphocytic colitis Obsessive-compulsive disorder Polycystic ovary syndrome Severe recurrent major depression withou t psychotic features , Surgical History Surgery Date(Month/Year) Other 11/26/2020
== END 2024-06-23 15:02 | disposition home or self-care (01) ==
LOC: ANHLAB 15:04
PROVIDERS: PCP Nurse Practitioner Family; Visit Provider Nurse Practitioner Family
DX: R00.2 Palpitations (principal); Z13.220 Encounter for screening for lipoid disorders; Z68.30 Body mass index [BMI] 30.0-30.9, adult
CPT/HCPCS: 36415; 80053; 80061; 83036; 83735; 84443; 85025

== ENCOUNTER 2024-07-07 08:56 | Outpatient (CLI) | payer OTHER, SELFPAY ==
--- OUTSIDE RECORDS SUMMARY | 2024-07-07 09:07 | XMS_ITS | Referral Summary ---
Author Organization [facility] Address [address] [place] [address] Care Team Providers Care Primary Operator Name Role Phone No, Physician Primary Care Provider [phone] Alphonso Frias MD Unavailable [phone] Allergies Active Allergy Reactions Criticality Noted Date [...] of Binge Drinking Not on file 11/01 [place] Depression Scale Answer Date Recorded [place] Depression Scale Total 3 11/29/2020 The thought [...] Advance Directives For more information, please contact: [phone] * Full Code (Latest Code Status on File) Date Activated Date Inactivated Comments 11/26/2020 1:17 PM 11/29/2020 3:03 PM * Full Code Date Activated Date Inactivated Comments 11/26/2020 9:58 AM 11/26/2020 1:17 PM Full CPR in case of cardiopulmonary arrest * Full Code Date Activated Date Inactivated Comments 10/12/2020 2:43 AM 10/14/2020 6:46 PM Care Teams Primary Operator Relationship Specialty Start Date End Date No, Physician PCP - General 07/24/20 Alphonso Frias MD [address] [address] Advisory Intern Obstetrics and Gynecology 11/27/20
--- OUTSIDE RECORDS SUMMARY | 2024-07-07 09:07 | XMS_ITS | Clinical Summary ---
Author Organization [facility] Address [address] [place] [address] Care Team Providers Care Exerciser Name Role Phone Ilene Cedillo MIGNON Primary Care Provider [phone] Allergies Active Allergy Reactions Criticality Noted Date [...] Active Problems Problem Noted Date Diagnosed Date ([facility]) 07/04/2022 mental disorders of mother ([facility]) 07/04/2022 Family History * Patient is adopted [...] friends or relatives? Patient declined 07/05/2022 Attends [employer] Not on file 07/05 Active Member [...] and heating? Not hard at all 07/05/2022 [facility] - Occupational Stress [...] place to sleep or slept in a alf (including now)? No 07/05/2022 Depression Answer Date [...] Comments Blood Pressure 139/84 03/17/2023 1:13 PM [facility] Pulse 78 03/17/2023 1:13 PM [facility] Temperature 36.4 C (97.5 F) 03/17/2023 1:13 PM [facility] Respiratory Rate 18 03/17/2023 1:13 PM [facility] Oxygen Saturation 100% 03/17/2023 1:13 PM [facility] Inhaled Oxygen Concentration - - Weight 94.7 kg (208 lb 12.4 oz) 03/17/2023 1:13 PM [facility] Height 157.5 cm (5' 2 ) 03/17/2023 1:13 PM [facility] Body Mass Index 38.19 03/17/2023 1:13 PM [facility] Plan of Treatment Health Maintenance Due Date [...] 8:29 AM 07/06/2022 3:03 PM Care Teams Exerciser Relationship Specialty Start Date End Date Ilene Cedillo CNM [address] [place] [address] (work) PCP - General CERTIFIED NURSE LINING BASTER 07/03/22
--- OUTSIDE RECORDS SUMMARY | 2024-07-07 09:08 | XMS_ITS | Patient Health Record ---
Author Organization [facility] As [employer] [facility] Address [address] [place] [address] Care Team Providers Care Instrument Mechanic Weapons System Name Role Phone Shahana Jean Baptiste Primary Care Provider Haim Mendiola Unavailable [phone] Migration, Provider Unavailable Unavailable Allergies Allergen (clinical [...] negative Phenocyclidine negative THC negative UDT Reviewed date:08/07/2023 03:19:50 PM Interpretation: Performing Lab: Notes/Report: THC negative 0 - 50 ng/ml Cocaine negative Amphetamine positive Buprenorphine (BUP) negative Secobarbital (Bar) negative Oxazepam (BZO) negative 2-chblcjacjd-3,2-kmodnaba-5, 3-diphenylpyrrolidine (EDDP) negative Methamphetamine (MET) negative Methylenedioxymethamphetamine (MDMA) negative Morphine (MOP 300/RVG3222) negative Methadone (MTD) negative Phencyclidine (PCP) negative Nortriptyline (TCA) negative x negative UDT Reviewed date:10/07/2023 04:28:45 PM Interpretation: Performing Lab: Notes/Report: THC N 0 - 50 ng/ml Cocaine N 0 - 300 ng/ml Amphetamine P 0 - 1000 ng/ml Buprenorphine (BUP) N 0 - 10 ng/ml Secobarbital (Bar) N 0 - 300 ng/ml Oxazepam (BZO) N 0 - 300 ng/ml 5-etrwnlwiqx-6,6-hlpakexe-3, 3-diphenylpyrrolidine (EDDP) N 0 - 300 ng/ml Methamphetamine (MET) N 0 - 1000 ng/ml Methylenedioxymethamphetamine (MDMA) N 0 - 500 ng/ml Morphine (MOP 300/[id number]) N 0 - 300 ng/ml Methadone (MTD) [...] Oxazepam (BZO) N 0 - 300 ng/ml 2-fmafywppsl-1,8-sctqyomj-2, 3-diphenylpyrrolidine (EDDP) N 0 - 300 ng/ml Methamphetamine (MET) N 0 - 1000 ng/ml Methylenedioxymethamphetamine (MDMA) N 0 - 500 ng/ml Morphine (MOP 300/[id number]) N 0 - 300 ng/ml Methadone (MTD) N 0 - 300 ng/ml Phencyclidine (PCP) N 0 - 25 ng/ml Nortriptyline (TCA) N 0 - 1000 ng/ml Oxycodone N 0 - 300 ng/ml x N 0 - 300 ng/ml UDT Reviewed date:02/03/2024 04:42:40 PM Interpretation: Performing Lab: Notes/Report: THC N 0 - 50 ng/ml Cocaine N 0 - 300 ng/ml Amphetamine P 0 - 1000 ng/ml Buprenorphine (BUP) N 0 - 10 ng/ml Secobarbital (Bar) N 0 - 300 ng/ml Oxazepam (BZO) N 0 - 300 ng/ml 5-cnxmmjzkgt-5,0-lkaqwhek-5, 3-diphenylpyrrolidine (EDDP) N 0 - 300 ng/ml Methamphetamine (MET) N 0 - 1000 ng/ml Methylenedioxymethamphetamine (MDMA) N 0 - 500 ng/ml Morphine (MOP 300/[id number]) N 0 - 300 ng/ml Methadone (MTD) [...] Oxazepam (BZO) N 0 - 300 ng/ml 9-woavpbajxz-9,8-swhyurpj-2, 3-diphenylpyrrolidine (EDDP) N 0 - 300 ng/ml Methamphetamine (MET) N 0 - 1000 ng/ml Methylenedioxymethamphetamine (MDMA) N 0 - 500 ng/ml Morphine (MOP 300/HLB6222) N 0 - 300 ng/ml Methadone (MTD) N 0 - 300 ng/ml Phencyclidine (PCP) N 0 - 25 ng/ml Nortriptyline (TCA) N 0 - 1000 ng/ml Oxycodone N 0 - 300 ng/ml x N 0 - 300 ng/ml Reason For Referral No Information Medications Medication SIG (Take, Route, Frequency, Duration) Notes Start Date End Date Status hydrOXYzine HCl 10 MG 1 tablet Oral twic e a day for 30 days Active Amphetamine-Dextroamphet ER 30 MG 1 capsule in the morning Oral Once a day for 30 days 06/29/2024 Active cloNIDine HCl 0.1 MG 1 tablet every nigh t Oral Once a day for 90 days Active Escitalopram Oxalate 20 MG 1 tablet [...] Severe recurrent major depression without psychotic features (25870879) Major depressive disorder, recurrent 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.2) Active confirmed Problem Attention deficit hyperactivity disorder, combined type (14719184) Attention-deficit hyperactivity disorder, combined type (F90.2) Active confirmed Problem [id number] DAVE (generalized anxiety disorder) (F41.1) Active confirmed Vital Signs Heart Rate 88 /min 05/04/2024 Height-cm 156.21 cm 05/04/2024 Blood pressure diastolic 93 mm Hg 05/04/2024 Weight-kg 77.11 kg 05/04/2024 Height 61.50 in 05/04/2024 Blood pressure systolic 140 mm Hg 05/04/2024 Weight 170 lbs 05/04/2024 BMI 31.6 kg/m2 05/04/2024 Encounters Encounter Location Date Provider Diagnosis [facility] [employer] [facility] [address] [facility] [address] [place] [address] 07/09/2023 Haim Bettye Obsessive-compulsive disorder, unspecified F42.9 ; Attention-deficit hyperactivity disorder, combined type F90.2 and Major depressive disorder, recurrent severe without psychotic features F33.2 [facility] [employer] [facility] [address] [facility] [address] [place] [address] 08/07/2023 Haim Bettye Attention-deficit hyperactivity disorder, combined type F90.2 and Major depressive disorder, recurrent severe without psychotic features F33.2 [facility] [employer] [facility] [address] [address] 10/07/2023 Haim Bettye Attention-deficit hyperactivity disorder, combined type F90.2 and Major depressive disorder, recurrent severe without psychotic features F33.2 [facility] [employer] [facility] [address] [place] [address] 12/09/2023 Haim Bettye Attention-deficit hyperactivity disorder, combined type F90.2 and Major depressive disorder, recurrent severe without psychotic features F33.2 [facility] [employer] [facility] [address] [address] 01/06/2024 Haim Bettye Attention-deficit hyperactivity disorder, combined type F90.2 and Major depressive disorder, recurrent severe without psychotic features F33.2 [facility] [employer] [facility] [address] [place] [address] 02/03/2024 Haim Bettye Attention-deficit hyperactivity disorder, combined type F90.2 and Major depressive disorder, recurrent severe without psychotic features F33.2 [facility] [address] [place] [address] 05/04/2024 Haim Bettye Attention-deficit hyperactivity disorder, combined type F90.2 ; Major depressive disorder, recurrent severe without psychotic features F33.2 and DAVE (generalized anxiety disorder) F41.1 [facility] [address] [place] [address] 05/20/2024 Haim Bettye Attention-deficit hyperactivity disorder, combined type F90.2 ; Major depressive disorder, recurrent severe without psychotic features F33.2 ; DAVE (generalized anxiety disorder) F41.1 and Encounter for screening for depression Z13.31 [facility] [address] [place] [address] 07/09/2023 Provider Migration [facility], [facility] [address] [place] [address] 07/18/2023 Provider Migration [facility], [facility] [address] [place] [address] 07/19/2023 Provider Migration [facility], [facility] [address] [place] [address] 08/26/2023 Haim Bettye Attention-deficit hyperactivity disorder, combined type F90.2 [facility] [address] [place] [address] 05/04/2024 Haim Bettye [facility], [facility] [address] [place] [address] 08/14/2023 Haim Bettye [facility], [facility] [address] [place] [address] 08/26/2023 Haim Bettye Attention-deficit hyperactivity disorder, combined type F90.2 [facility] [address] [place] [address] 09/09/2023 Haim Bettye Attention-deficit hyperactivity disorder, combined type F90.2 [facility], [facility] [address] [place] [address] 09/10/2023 Haim Bettye Attention-deficit hyperactivity disorder, combined type F90.2 [facility], [facility] [address] [place] [address] 10/07/2023 Haim Bettye [facility], [facility] [address] [place] [address] 10/12/2023 Haim Bettye Attention-deficit hyperactivity disorder, combined type F90.2 [facility], [facility] [address] [place] [address] 11/09/2023 Hiam Bettye Attention-deficit hyperactivity disorder, combined type F90.2 [facility], [facility] [address] [place] [address] 11/18/2023 Haim Bettye Attention-deficit hyperactivity disorder, combined type F90.2 [facility], [facility] [address] [place] [address] 12/01/2023 Haim Bettye [facility], [facility] [address] [place] [address] 12/09/2023 Haim Bettye [facility], [facility] [address] [place] [address] 12/14/2023 Haim Bettye Attention-deficit hyperactivity disorder, combined type F90.2 [facility], [facility] [address] [place] [address] 03/16/2024 Haim Bettye Attention-deficit hyperactivity disorder, combined type F90.2 [facility], [facility] [address] [place] [address] 03/21/2024 Haim Bettye Attention-deficit hyperactivity disorder, combined type F90.2 [facility], [facility] [address] [place] [address] 04/30/2024 Haim Bettye Attention-deficit hyperactivity disorder, combined type F90.2 [facility], [facility] [address] [place] [address] 05/20/2024 Haim Btetye [facility], [facility] [address] [place] [address] 05/24/2024 Haim Bettye [facility], [facility] [address] [place] [address] 06/26/2024 Haim Wen Attention-deficit hyperactivity disorder, combined type F90.2 Assessments Encounter Date Diagnosis (ICD Code) Assessment [...] 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 05/04/2024 Attention-defic it hyperactivity disorder, combined type [...] Provider can order medication once approval received. 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 - Plan: Encourage patient to contact [employer]'s insurance department for assistance and guidance. Follow-up [...] on all financial and home management tasks. 12/14/2023 Attention-defic it hyperactivity disorder, combined type (ICD-10 - F90.2) 01/06/2024 Major depressive disorder, recurrent severe without [...] requests all medications to be sent to [facility] in [place]. Patient mentions difficulty obtaining Adderall at previous pharmacy. - Plan: - Make [facility] the primary pharmacy and send all prescriptions there. Insurance change - Assessment: Patient will be switching to [email or web address] insurance soon due to employment with [email or web address]. - Plan: - Patient to verify if the current provider is covered under the new insurance plan. - If not, the patient may need to find an in-network provider or explore [id number] benefits. Follow-up - Plan: - Schedule a [...] requests all medications to be sent to [facility] in [place]. Patient mentions difficulty obtaining Adderall at previous pharmacy. - Plan: - Make [facility] the primary pharmacy and send all prescriptions there. Insurance change - Assessment: Patient will be switching to [email or web address] insurance soon due to employment with [employer]. - Plan: - Patient to verify if the current provider is covered under the new insurance plan. - If not, the patient may need to find an in-network provider or explore [id number] benefits. Follow-up - Plan: - Schedule a follow-up appointment in one month. - Patient to confirm insurance coverage before the appointment. 02/03/2024 Attention-defic it hyperactivity disorder, combined type (ICD-10 - F90.2) Electronic Prior Authorization was requested for Qelbree 200 MG Capsule Extended Release 24 Hour. Provider can order medication once approval received. Divorce-related Stress - Assessment: Patient reports signing divorce papers last Thursday before and experiencing emotional difficulties related to family events and financial concerns. - Plan: - Encourage the patient to seek support from friends, family, or a therapist to help cope with the emotional challenges of the divorce process. Financial Stress - Assessment: Patient reports being $500 short per month and considering picking up extra shifts or a PRN position at [employer]. 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 05/04/2024 Major depressive disorder, recurrent severe without psychotic features (ICD-10 - F33.2) 02/03/2024 Major depressive disorder, recurrent severe without [...] extra shifts or a PRN position at [employer]. - Plan: - Encourage the patient [...] on all financial and home management tasks. 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 - Plan: Encourage patient to contact [employer]'s insurance department for assistance and guidance. Follow-up [...] severe without psychotic features (ICD-10 - F33.2) 08/26/2023 Attention-defic it hyperactivity disorder, combined type (ICD-10 - F90.2) Electronic Prior Authorization was requested for Qelbree 200 MG Capsule Extended Release 24 Hour. Provider can order medication once approval received. 05/20/2024 DAVE (generalized anxiety disorder) (ICD-10 - [...] Medication management - Assessment: Patient prefers to excelsior picker Adderall at the pharmacy where she works in [place] ([employer] [email or web address] [facility]). - Plan: - Send clonidine prescription to [email or web address]. - Continue to send Adderall and atomoxetine prescriptions locally. - Reevaluate medication management in one month. Follow-up - Plan: Schedule a follow-up appointment in one month to monitor patient's progress and response to clonidine. 05/20/2024 Charity Urbina, female patient with history of recent [...] approved - Continue regular counseling sessions with Ligia - Follow up in 2 months Attention Deficit Hyperactivity Disorder (ADHD) Assessment: Patient is currently on Adderall for ADHD management. The medication was previously sent to [facility] pharmacy. Plan: - Continue Adderall (dose not specified) - Resend Adderall prescription to [facility] pharmacy Disclaimer: This note has been transcribed using speech recognition software and serves as a reflection of the patient's visit. While efforts have been made to ensure accuracy, there may be errors, including group billing coordinator inaccuracies and misspellings of medication names. This document should not be considered a verbatim record, and any discrepancies should be verified with the provider. Plan Of Treatment Pending Test Test Name Order Date UDT 05/04/2024 Next Appt Details Provider Name:Haim Wen , 07/22/2024 11:15:00 AM, [address], [facility] [address], [place], [address], Insurance Providers Payer Name Payer Address Payer Phone Subscriber Number Group Number Insured Name Patient Relationship to Insured Coverage Start Date Coverage End Date Gw-Cig na - [employer] [address] [place] [address] [id number] ENEDINA URBINA Self - patient is the insured 4 Umr [address] [address] [place] [address] [id number] ENEDINA URBINA Self - patient is the insured 5 Medical (General) History Medical History History ICD Code Problems: Adult attention deficit hypera ctivity disorder Attention deficit hyperactivity disorder , combined t [id number]|2024-07-07 09:08:00|2024-07-07 09:07:00|XMS_ITS|BKG DAEMON|External Medical Summaries|[id number]|" Clinical Summary Created on: July 07, 2024 Enedina Urbina : 1995 Sex: Female Author Organization [facility] Address [address] [place] [address] Phone Care Team Providers Care Instrument Mechanic Weapons System Name Role Phone Tarah Samson MD Primary Care Provider [phone] Allergies Active Allergy Reactions Criticality Noted Date [...] tablet Take 20 mg by mouth daily. 3 Active hydrOXYzine HCL (ATARAX) 10 mg tablet Take 10 mg by mouth 2 times daily. Active metroNIDAZOLE (FLAGYL) 500 mg tablet Take 1 Tablet (500 mg) by mouth 2 times daily. Take with meals, avoid alcohol during treatment and for 3 days after last dose 14 Tablet 5 Active amphetamine-dex troamphetamine (ADDERALL XR) 30 mg Extended Release 24 hour capsule Take 1 Capsule (30 mg) by mouth daily in the morning. Max Daily Amount: 30 mg 30 Capsule 05/06/2024 12:21 PM DAIRY HAND 5 Active cloNIDine HCL (CATAPRES) 0.1 mg tablet Take 1 Tablet (0.1 mg) by mouth daily at bedtime. 90 Tablet 05/06/2024 12:21 PM DAIRY HAND 5 Active Active Problems Problem Noted Date Diagnosed Date Threatened labor 09/14/2020 Encounters Date Type Department Care Team Description 06/06/2024 Results Follow-Up [facility] DISPATCH SUPERVISOR Medical [facility] [address] [facility] [address] [place] [address] Roge Alexandre MD URINE CULTURE, VAGINOSIS/VAGINITIS PANEL BASIC 06/03/2024 12:00 PM CDT Office Visit [facility] DISPATCH SUPERVISOR [facility] [address] [facility] [address] [place] [address] Roge Alexandre MD UTI symptoms (Primary Dx); Urethral bleeding; Vulvar itching 06/02/2024 Telephone [facility] Women's Health Clinical Support [address] [place] [address] Jennie Wall RN Urinary Pain 05/31/2024 External Device Data [facility] ABSTRACTION Provider, Abstract 05/10/2024 External Device Data [facility]CTION Provider, Abstract 05/10/2024 External Device Data [facility]STRACTION Provider, Abstract 04/20/2024 External Device Data [facility]CTION Provider, Abstract 04/20/2024 External Device Data [facility]STRACTION Provider, Abstract 04/19/2024 External Device Data [facility] ABSTRACTION Provider, Abstract 04/18/2024 Results Follow-Up [facility] Labor & [address] [place] [address] Giovana Jay APRN-CNM HEPATITIS B SURFACE ANTIGEN, HEPATITIS C ANTIBODY W REFLEX, HIV DETECTION W/REFLX CONFIRMATION, Additional followed-up results: 3 04/15/2024 9:15 AM DAIRY HAND Office Visit [facility] DISPATCH SUPERVISOR [facility] [address] [address] [place] [address] Braxton Matias MD Well woman exam with routine gynecological exam (Primary Dx); Screening for cervical cancer; Screening for HPV (human papillomavirus); Screen for STD (sexually transmitted disease); Family history of breast cancer; Miscarriage; Contraceptive education 04/14/2024 9:06 PM DAIRY HAND - 04/14/2024 9:08 PM DAIRY HAND Emergency [facility] Emergency Department [address] [place] [address] Discharge Disposition: Left without being seen 04/14/2024 4:45 PM DAIRY HAND - 04/14/2024 5:12 PM DAIRY HAND Hospital Encounter [facility] OB Triage [address] [place] [address] Braxton Matias MD Discharge Disposition: Home or Self Care 04/14/2024 Travel 04/14/2024 Telephone [facility] Women's Health Clinical Support [address] [place] [address] Satya Donis RN Question from Last 3 Months Immunizations Immunization Administration [...] CDT Gender Identity Female 04/13/2024 6:59 PM DAIRY HAND Sexual Orientation Not on file Last Filed Vital Signs Vital Sign Reading Time Taken Comments Blood Pressure 120/78 06/03/2024 11:21 AM CDT Pulse 91 04/14/2024 8:58 PM DAIRY HAND Temperature 37 C (98.6 F) 04/14/2024 8:58 PM DAIRY HAND Respiratory Rate 18 04/14/2024 8:58 PM DAIRY HAND Oxygen Saturation 100% 04/14/2024 8:58 PM DAIRY HAND Inhaled Oxygen Concentration - - Weight 77.1 kg (170 lb) 06/03/2024 11:21 AM CDT Height 160 cm (5' 3 ) 06/03/2024 11:21 AM CDT Body Mass Index 30.11 06/03/2024 11:21 AM CDT Plan of Treatment Upcoming Encounters Date Type Department Care Team (Late st Contact Info) Description 12/15/2024 Hospital Encounter [facility] OB Triage [address] [place] [address] Braxton Matias MD [address] [facility] [address] [place] [address] Health Maintenance Due Date Last Done Comments HEPATITIS B VACCINES (1 of 3 - 19+ 3-dose series) 2013 HPV/Cotest (21-29) 09/06/2015 COVID-19 Vaccine ( - 2023- season) 2023 10/24/2020, 10/03/2020 CERVICAL CANCER SCREENING [...] UTI symptoms RPR Routine 04/15/2024 10:47 AM DAIRY HAND Screen for STD (sexually transmitted disease) HIV DETECTION W/REFLX CONFIRMATION Routine 04/15/2024 10:47 AM DAIRY HAND Screen for STD (sexually transmitted disease) HEPATITIS C ANTIBODY Routine 04/15/2024 10:47 AM DAIRY HAND Screen for STD (sexually transmitted disease) HEPATITIS B SURFACE ANTIGEN Routine 04/15/2024 10:47 AM DAIRY HAND Screen for STD (sexually transmitted disease) CERV/VAG CYTO AGE BASED SCREEN PAP Routine 04/15/2024 10:05 AM DAIRY HAND Screening for cervical cancer Screening for HPV (human papillomavirus) VAGINOSIS/VAGINITIS PANEL PLUS Routine 04/15/2024 10:05 AM DAIRY HAND Screen for STD (sexually transmitted disease) POC , URINE Routine 04/14/2024 4:51 PM DAIRY HAND from Last 3 Months Results * (ABNORMAL) VAGINOSIS/VAGINITIS PANEL BASIC (06/03/2024 12:31 PM CDT) BACTERIAL VAGINOSIS NEGATIVE NEGATIVE [facility] VAISHALI SPECIES DETECTED(A) NOT DETECTED [facility] VAISHALI GLABRATA NOT DETECTED NOT DETECTED [facility] Comment: Vaishali species C. albicans, C. tropicalis, C. parapsilosis, and/or C. dubliniensis can be detected, but not differentiated, in the Vaishali spp. result. TRICHOMONAS VAGINALIS (TV), TMA NOT DETECTED NOT DETECTED [facility] Comment: Test Performed at: [facility] [address] [place] [address] Jana Garcia MD Genital SPECIMEN FROM VAGINA / Unknown 06/03/2024 12:31 PM CDT 06/04/2024 8:14 AM CDT us Roge Alexandre MD MICROBIOLOGY - GENERAL ORDERABLE S Final Result [facility] [phone] [facility] [place] [address] [place] [address] * URINE CULTURE (06/03/2024 12:31 PM CDT) URINE CULTURE SEE NOTE [facility] Comment: CULTURE, URINE, ROUTINE Micro Number: [id number] Test Status: Final Specimen Source: Urine, clean catch Specimen Quality: Adequate Result: Less than 10,000 CFU/mL of single Gram positive organism isolated. No further testing will be performed. If clinically indicated, recollection using a method to minimize contamination, with prompt transfer to Urine Culture Transport Tube, is recommended. COMMENT: No group B Streptococcus isolated Test Performed at: [facility] [address] [place] [address] Jana Garcia MD Urine URINE SPECIMEN OBTAINED BY CLEAN CATCH PROCEDURE / Unknown 06/03/2024 12:31 PM CDT 06/04/2024 8:15 AM CDT us Roge Alexandre MD MICROBIOLOGY - GENERAL ORDERABLE S Final Result Performing Organization Address [facility]/State/ZIP Co de Phone Number [facility] [phone] [facility] [facility] [place] [address] [place] [address] * HIV DETECTION W/REFLX CONFIRMATION (04/15/2024 10:47 AM DAIRY HAND) HIV-1/2 AG AND AB SCREEN NON-REACT JOSE NON-REACT JOSE [facility] [facility] [place] Comment: HIV-1 antigen and HIV-1/HIV-2 antibodies were [...] purpose. For additional information please refer to http://education.MumsWay/faq/ERM968 (This link is being provided for informational/ educational purposes only.) The performance of this assay has not been clinically validated in patients less than 2 years old. Test Performed at: [facility] [address] [address] [place] [address] Jana Garcia MD Blood 04/15/2024 10:4 7 AM DAIRY HAND 04/15/2024 10:47 AM DAIRY HAND us Braxton Matias MD CHEMISTRY ORDERABLES Final Re sult [facility] [phone] [facility] [facility] [address] [place] [address] * HEPATITIS B SURFACE ANTIGEN (04/15/2024 10:47 AM DAIRY HAND) HEPATITIS B SURFACE AG NON-REACTI VE NON-REACTI VE [facility] Comment: For additional information, please refer to http://GLWL Research.MumsWay/faq/QDU689 (This link is being provided for informational/ educational purposes only.) Test Performed at: [facility] [place] [address] [place] [address] Jana Garcia MD Blood 04/15/2024 10:4 7 AM DAIRY HAND 04/15/2024 10:47 AM DAIRY HAND Braxton Matias MD CHEMISTRY ORDERABLES Final Re sult Performing Organization Address [facility]/ZIP Co de Phone Number [facility] [phone] [facility] [address] [place] [address] * HEPATITIS C ANTIBODY W REFLEX (04/15/2024 10:47 AM DAIRY HAND) HEPATITIS C AB NON-REACTI VE NON-REACT JOSE [facility] Comment: HCV antibody was non-reactive. There is no laboratory evidence of HCV infection. In most cases, no further action is required. However, if recent HCV exposure is suspected, a test for HCV RNA (test code 67703) is suggested. For additional information please refer to http://GLWL Research.MumsWay/faq/IKO60j8 (This link is being provided for informational/ educational purposes only.) Test Performed at: [facility] [address] [facility] [place] [address] Jana Garcia MD Blood 04/15/2024 10:4 7 AM DAIRY HAND 04/15/2024 10:47 AM DAIRY HAND us Braxton Matias MD CHEMISTRY ORDERABLES Final Re sult [facility] [phone] [facility] [address] [place] [phone] * RPR (04/15/2024 10:47 AM DAIRY HAND) RPR NON-REACTI VE NON-REACTI VE [facility] Comment: No laboratory evidence of syphilis. If recent exposure is suspected, submit a new sample in 2-4 weeks. Test Performed at: [address] [address] Jana Garcia MD Blood 04/15/2024 10:4 7 AM DAIRY HAND 04/15/2024 10:47 AM DAIRY HAND us Braxton Matias MD CHEMISTRY ORDERABLES Final Re sult [facility] [phone] [facility] [address] [address] * CERV/VAG CYTO AGE BASED SCREEN PAP (04/15/2024 10:05 AM DAIRY HAND) COMMENT (PAP): [facility] Comment: This order for age-based cervical cancer and STI screening follows ACOG guidelines(PB 168, 140, QRN595). See individual assays for performing site location. [...] was manually screened according to routine procedures. OPTICAL INSTRUMENT REPAIRER: Gayla Combs Comment: BES, CT(ASCP) CT screening location: [place] [address] [place] [address] EXPLANATORY NOTE [facility] Comment: EXPLANATORY NOTE: The Pap is a screening test for cervical cancer. It is not a diagnostic test and is subject to false negative and false positive results. It is most reliable when a satisfactory sample, regularly obtained, is submitted with relevant clinical findings and history, and when the Pap result is evaluated along with historic and current clinical information. Test Performed at: [facility] [place] [address] [place] [address] Jana Garcia Genital SWAB OF ENDOCERVIX / Unknown 04/15/2024 10:05 AM DAIRY HAND 04/15/2024 10:52 PM DAIRY HAND Braxton Matias MD PATHOLOGY/CYTOLOGY ORDERABLES Final Result [facility] [phone] [facility] [place] [address] [place] [address] * (ABNORMAL) VAGINOSIS/VAGINITIS PANEL PLUS (04/15/2024 10:05 AM DAIRY HAND) BACTERIAL VAGINOSIS POSITIVE(A) NEGATIVE [facility] [place] VAISHALI SPECIES NOT DETECTED NOT DETECTED [facility] [place] VAISHALI GLABRATA NOT DETECTED NOT DETECTED [facility] [place] [facility] Comment: Vaishali species C. albicans, C. tropicalis, C. parapsilosis, and/or C. dubliniensis can be detected, but not differentiated, in the Vaishali spp. result. TRICHOMONAS VAGINALIS (TV), TMA NOT DETECTED NOT DETECTED [facility] [place] CHLAMYDIA TRACHOMATIS RNA, TMA, UROGENITAL NOT DETECTED NOT DETECTED [facility] [place] NEISSERIA GONORRHOEAE RNA, TMA, UROGENITAL NOT DETECTED NOT DETECTED [facility] [place] Comment: For additional information, please refer to https://education.MumsWay/faq/KET702 (This link is being provided for information/ educational purposes only.) Test Performed at: [facility] [address] [address], [place] [address] Jana Garcia MD Genital SPECIMEN FROM VAGINA / Unknown 04/15/2024 10:05 AM DAIRY HAND 04/15/2024 10:52 PM DAIRY HAND Braxton Matias MD MICROBIOLOGY - GENERAL PEDRO ESTRELLA Final Result [facility] [phone] [facility] [address] [address] [place] [address] * POC , URINE (04/14/2024 4:51 PM DAIRY HAND) HCG QUAL URINE Negative Negative 04/14/2024 4:51 PM DAIRY HAND [facility] Urine 04/14/2024 4:51 PM DAIRY HAND 04/14/2024 4:58 PM DAIRY HAND Narrative [facility] - 04/14/2024 4:51 PM DAIRY HAND Positive : Result is greater than or equal to 25 mIU/mL Negative: Result is less than 25 mIU/mL Invalid: Result is borderline or indeterminate,send to lab for serum test methodology. Braxton Matias MD POINT OF CARE TESTING Final R esult [facility] CLIA# [id number] [address] [place] [address] from Last 3 Months Insurance [facility] OPTUM RX Member Subscriber Plan / Payer ( fective 2024-Present) Name:Enedina Urbina Relation to Subscriber:Spouse Subscriber ID:Not on file Payer ID:Not on file Type:RX Commercial Address: [address] RX OPTUM RX Member Subscriber Plan / Payer ( fective 2024-Present) Name:Enedina Urbina Relation to Subscriber:Self Name:Enedina Urbina Subscriber ID:Not on file Payer ID:Not on file Type:Not on file Address: [address] Care Teams Instrument Mechanic Weapons System Relationship Specialty Start Date End Date Tarah Samson MD [address] [address] PCP - General Family Practice 07/28/19 "
--- OUTSIDE RECORDS SUMMARY | 2024-07-07 09:08 | XMS_ITS | Clinical Summary ---
Author Organization [facility] [employer] Address [address] [place] [address] Care Team Providers Care Foot Cutter Name Role Phone Unknown, Provider Primary Care Provider Unavaila ble Source Comments [facility] [employer],non-owned Affiliates and Associated Physician Practices is amultiple site organization consisting of ambulatory clinics and hospital sitesin [place], [place], [place]. This disclosure is being madepursuant to the Care Everywhere program and may not contain all information available regarding this patient. Last updated 17.SAIC [employer] Allergies No known active allergies Medications * This document contains information received from the source organization and may not represent a complete record from that organization. * Be aware that medications may not be up to date on this document. Alwaysverify current medications with the patient. escitalopram (Lexapro) 20 MG tabletIndicatio ns:Major Depressive Disorder Take 1 (one) tablet by mouth once daily Reasons: Major Depressive Disorder 30 tablet 1 4 Active Active Problems Problem Noted Date Diagnosed Date Severe episode of recurrent major depressive disorder, without psychotic features 03/19/2023 Social History Tobacco Use Types Packs/Day Years Used Date Smoking Tobacco: Never Smokeless Tobacco: Never Tobacco Cessation:Counseling Given: No Alcohol Use Standard Drinks/Week Comments Never 0 (1 standard drink = 0.6 oz pur e alcohol) AUDIT-C Answer Date Recorded Q1: How often do you have a drink containing alcohol? Never 03/19/2023 Q2: How many drinks containi ng alcohol do you have on a typical day when you are drinking? Patient does not drink Q3: How often do you have si x or more drinks on one occasion? Never 03/19/2023 Overall Financial Resource Strain (CARDIA) Answe r Date Recorded How hard is it for you to pa y for the very basics like food, housing, medical care, and heating? Not hard at all 03/19/2023 PHQ-2 Answer Date Recorded Patient Health Questionnaire-2 Score 6 03/19/2023 [facility] - Occupational Stress Questionnaire Answer Date Recorded Do you feel stress - tense, restless, nervous, or anxious, or unable to sleep at night because your mind is troubled all the time - these days? Rather much 03/19/2023 Hunger Vital Sign Answer Date Recorded Within the past 12 months, y ou worried that your food would run out before you got the money to buy more. Never true 03/19/19 24 Within the past 12 months, t he food you bought just didn't last and you didn't have money to get more. Never true 03/19/2023 PRAPARE - Transportation Answer Date Re corded In the past 12 months, has l ack of transportation kept you from medical appointments or from getting medications? No 03/02 In the past 12 months, has l ack of transportation kept you from meetings, work, or from getting things needed for daily living? No 03/19/2023 Housing Stability Vital Sign Answer Stan e Recorded In the last 12 months, was t here a time when you were not able to pay the mortgage or rent on time? No 03/19/2023 In the last 12 months, how many places have you lived? 1 03/19/2023 In the last 12 months, was t here a time when you did not have a steady place to sleep or slept in a snf (including now)? No 03/19/2023 Comments Unknown Sex and Gender Information Value Date Recorded Sex Assigned at Not on file Legal Sex Female 6:46 AM CUSTOMER COMPLAINT SERVICE SUPERVISOR Gender Identity Not on file Sexual Orientation Not on file Last Filed Vital Signs Vital Sign Reading Time Taken Comments Blood Pressure 120/83 03/22/2023 8:30 AM CUSTOMER COMPLAINT SERVICE SUPERVISOR Pulse 93 03/22/2023 8:30 AM CUSTOMER COMPLAINT SERVICE SUPERVISOR Temperature 36.3 C (97.3 F) 03/22/2023 8:30 AM CUSTOMER COMPLAINT SERVICE SUPERVISOR Respiratory Rate 18 03/22/2023 8:30 AM CUSTOMER COMPLAINT SERVICE SUPERVISOR Oxygen Saturation 97% 03/22/2023 8:30 AM CUSTOMER COMPLAINT SERVICE SUPERVISOR Inhaled Oxygen Concentration - - Weight 95.6 kg (210 lb 12.8 oz) 03/19/2023 8:45 PM CUSTOMER COMPLAINT SERVICE SUPERVISOR Height 154.9 cm (5' 1 ) 03/19/2023 8:45 PM CUSTOMER COMPLAINT SERVICE SUPERVISOR Body Mass Index 39.83 03/19/2023 8:45 PM CUSTOMER COMPLAINT SERVICE SUPERVISOR Plan of Treatment Health Maintenance Due Date Last Done Comments PAP SMEAR 1994 DTAP/TDAP/TD VACCINES (1 - Tdap) 2013 HEPATITIS B VACCINE (1 of 3 - 19+ 3-dose series) 2013 COVID-19 VACCINE ( - 2023-2 5 season) 2023 DEPRESSION SCREENING 03/02/2024 03/19/2023 INFLUENZA VACCINE (Season Ended) 2024 ZOSTER VACCINE (1 of 2) 2044 HIV SCREENING Completed 12/08/2021 HEPATITIS C SCREENING Completed 02/07/2022 HIB VACCINE Aged Out No longer eligi ble based on patient's age to complete this topic HPV VACCINE Aged Out No longer eligi ble based on patient's age to complete this topic MENINGOCOCCAL (Group B) VACC INE SHARED DECISION-MAKING Aged Out No longer eligibl e based on patient's age to complete this topic MENINGOCOCCAL GROUPS A/C/Y/W VACCINE Aged Out No longer eligible b ased on patient's age to complete this topic PNEUMOCOCCAL VACCINE Aged Out No long er eligible based on patient's age to complete this topic Insurance [facility] [place] [id number] [facility] Advance Directives * Full Code (Latest Code Status on File) Date Activated Date Inactivated Comments 03/19/2023 9:57 PM 03/22/2023 5:38 PM Care Teams Foot Cutter Relationship Specialty Start Date End Date Unknown, Provider PCP - General 03/19/23
--- OUTSIDE RECORDS SUMMARY | 2024-07-07 09:08 | XMS_ITS | Clinical Summary ---
Author Organization [facility] Address [address] [place] [address] Care Team Providers Care College Instructor Name Role Phone No, Physician Primary Care Provider [phone] Alphonso Frias MD Unavailable [phone] Allergies Active Allergy Reactions Criticality Noted Date [...] of Binge Drinking Not on file 11/01 Dan[place] Depression Scale Answer Date Recorded [place] Depression Scale Total 3 11/29/2020 The thought [...] Frias MD Complications:None Delivery Location:This Facil ity ([facility]) Comments:see ped note [...] Payer ID:[id number] Group ID:SMI GIVEN Type:COMMERCIAL Address: [place] [id number] COMMERCIAL GENERIC [employer] OPEN ACCESS LOCAL PLUS COMMERCIAL GENERIC Advance Directives For more information, please contact: [phone] * Full Code (Latest Code Status on File) Date Activated Date Inactivated Comments 11/26/2020 1:17 PM 11/29/2020 3:03 PM * Full Code Date Activated Date Inactivated Comments 11/26/2020 9:58 AM 11/26/2020 1:17 PM Full CPR in case of cardiopulmonary arrest * Full Code Date Activated Date Inactivated Comments 10/12/2020 2:43 AM 10/14/2020 6:46 PM Care Teams College Instructor Relationship Specialty Start Date End Date No, Physician PCP - General 07/24/20 Alphonso Frias MD [address] [place] [address] Nitrocellulose Maker Obstetrics and Gynecology 11/27/20
--- NOTE | 2024-07-15 16:16 | WPDHOLTEREM ---
Holter/Event Monitor Holter/Event Monitor Date of procedure: 07/07/24 Holter/Event Procedure: 3-7 Day Holter Monitor Indications: Palpitations Conclusion: 1. 4 days holter monitor on 07/07/24. 2. Underlying rhythm is sinus rhythm. HR range 50-173 bpm; average HR 96 bpm. HR at 173 bpm was on 07/09/24 at 1:35 am. 3. There are rare premature supraventricular complexes. No supraventricular tachycardia. 4. There are occasional premature ventricular complexes, rare ventricular couplets, and longest ventricular trigeminy was 17 seconds. No ventricular tachycardia. 5. No significant pauses greater than 3 seconds. 6. Patient reports 26 episodes of symptoms of irregular beats, shortness of breath, racing, clammy, chest heaviness, lightheadedness which demonstrate sinus rhythm, HR range 73-115 bpm with 24 episodes with PVC's.
== END 2024-07-07 08:57 | disposition home or self-care (01) ==
LOC: ANHCARD 08:57
PROVIDERS: PCP Nurse Practitioner Family; Visit Provider Nurse Practitioner Family
DX: I49.3 Ventricular premature depolarization (principal); R00.8 Other abnormalities of heart beat; R00.2 Palpitations
CPT/HCPCS: 93242

== ENCOUNTER 2024-07-14 12:48 | Emergency (ER) | payer OTHER, SELFPAY ==
[2024-07-14] VITALS (7 sets, daily range): BP systolic 111–130; BP diastolic 68–86; PULSE 88–127; RESP 18; TEMP 36.8; O2SAT 98–100
--- NOTE | ~2024-07-14 | XR_ITS ---
EXAMINATION: XR chest 2V DATE: 07/14/2024 13:20 INDICATION: TECHNIQUE: frontal and lateral views of the chest were obtained. COMPARISON: None FINDINGS: The lungs are clear with no focal airspace opacities, pulmonary edema, pleural effusion or pneumothor ax. The cardiomediastinal silhouette is normal. 10 degree upper thoracic levocurvature. IMPRESSION: 1. No acute cardiopulmonary disease. Reviewed, dictated and finalized at location A.
--- NOTE | ~2024-07-14 | CT_ITS ---
EXAMINATION: CTA chest PE protocol DATE: 07/14/2024 14:30 INDICATION: Chest pain TECHNIQUE: Computed tomography (CT) pulmonary angiogram of the chest was performed with 100 mL Omnipa que-350 intravenous contrast. Additional 3D reconstructions utilizing coronal maximum intensity proje ction (MIP) were performed. Automated exposure control and iterative reconstruction technique were em ployed. The dose-length product was 225.08 mGy-cm. COMPARISON: None FINDINGS: No pulmonary embolism. No pneumonia, pulmonary edema, pleural effusion or pneumothorax. Heart size is normal. No pericardial effusion. Thoracic aorta is normal in caliber with no dissection. No patholog ically enlarged thoracic lymphadenopathy. Visualized upper abdomen is unremarkable. Mild and upper th oracic levocurvature and mid thoracic dextrocurvature with mild spondylosis. IMPRESSION: 1. No pulmonary embolism or other acute cardiopulmonary disease. Reviewed, dictated and finalized at location A.
--- NOTE | 2024-07-14 12:57 | ECG_ITS ---
Test Date: 2024-07-14 12:53:02 Measurements Intervals [place] Rate: 126 P: 56 CO: 124 QRS: 36 QRSD: 86 T: 14 QT: 335 QTc: 487 Interpretive Statements SINUS TACHYCARDIA NONSPECIFIC ST & T-WAVE ABNORMALITY ABNORMAL ECG No previous ECG available for comparison Electronically Signed On 07-15-2024 09:42:08 CDT by Peng Isaac M.D.
--- OUTSIDE RECORDS SUMMARY | 2024-07-14 13:08 | XMS_ITS | Clinical Summary ---
Author Organization [facility] Address [address] [place] [address] Phone Care Team Providers Care Filler Sifter Helper Name Role Phone Tarah Samson MD Primary Care Provider [phone] Allergies Active Allergy Reactions Criticality Noted Date [...] 30 mg 30 Capsule 05/06/2024 12:21 PM ACCOUNT COLLECTOR 5 Active cloNIDine HCL (CATAPRES) 0.1 mg tablet Take 1 Tablet (0.1 mg) by mouth daily at bedtime. 90 Tablet 05/06/2024 12:21 PM ACCOUNT COLLECTOR Active Active Problems Problem Noted Date Diagnosed Date Threatened labor 09/14/2020 Encounters Date Type Department Care Team Description 07/12/2024 External Device Data STL ABSTRACTION Provider, Abstract 07/12/2024 External Device Data STL ABSTRACTION Provider, Abstract 07/12/2024 External Device Data STL ABSTRACTION Provider, Abstract 06/06/2024 Results Follow-Up [facility] SAND PLANT ATTENDANT [facility] [address] [address] [place] [address] Roge Alexandre MD URINE CULTURE, VAGINOSIS/VAGINITIS PANEL BASIC 06/03/2024 12:00 PM CDT Office Visit [facility] SAND PLANT ATTENDANT [facility] [address] [facility] [address] [place] [address] Roge Alexandre MD UTI symptoms (Primary Dx); Urethral bleeding; Vulvar itching 06/02/2024 Telephone [facility] Women's Health Clinical Support [address] [place] [address] Jennie Wall RN Urinary Pain 05/31/2024 External Device Data STL ABSTRACTION Provider, Abstract 05/10/2024 External Device Data STL ABSTRACTION Provider, Abstract 05/10/2024 External Device Data STL ABSTRACTION Provider, Abstract 04/20/2024 External Device Data STL ABSTRACTION Provider, Abstract 04/20/2024 External Device Data STL ABSTRACTION Provider, Abstract 04/19/2024 External Device Data STL ABSTRACTION Provider, Abstract 04/18/2024 Results Follow-Up [facility] Labor & [address] [place] [address] Giovana Jay APRN-CNM HEPATITIS B SURFACE ANTIGEN, HEPATITIS C ANTIBODY W REFLEX, HIV DETECTION W/REFLX CONFIRMATION, Additional followed-up results: 3 from Last 3 Months Immunizations Immunization Administration [...] CDT Gender Identity Female 04/13/2024 6:59 PM ACCOUNT COLLECTOR Sexual Orientation Not on file Last Filed Vital Signs Vital Sign Reading Time Taken Comments Blood Pressure 120/78 06/03/2024 11:21 AM CDT Pulse 91 04/14/2024 8:58 PM ACCOUNT COLLECTOR Temperature 37 C (98.6 F) 04/14/2024 8:58 PM ACCOUNT COLLECTOR Respiratory Rate 18 04/14/2024 8:58 PM ACCOUNT COLLECTOR Oxygen Saturation 100% 04/14/2024 8:58 PM ACCOUNT COLLECTOR Inhaled Oxygen Concentration - - Weight 77.1 kg (170 lb) 06/03/2024 11:21 AM CDT Height 160 cm (5' 3 ) 06/03/2024 11:21 AM CDT Body Mass Index 30.11 06/03/2024 11:21 AM CDT Plan of Treatment Upcoming Encounters Date Type Department Care Team (Late st Contact Info) Description 12/15/2024 Hospital Encounter [facility] OB Triage [address] [place] [address] Braxton Matias MD [address] [facility] [address] [place] [address] Health Maintenance Due Date Last [...] Routine 06/03/2024 12:31 PM CDT UTI symptoms CERV/VAG CYTO AGE BASED SCREEN PAP Routine 04/15/2024 10:05 AM ACCOUNT COLLECTOR Screening for cervical cancer Screening for HPV (human papillomavirus) from Last 3 Months or Most Recently Relevant to Health Maintenance Results * (ABNORMAL) VAGINOSIS/VAGINITIS PANEL BASIC (06/03/2024 12:31 PM CDT) BACTERIAL VAGINOSIS NEGATIVE NEGATIVE [facility] VAISHALI SPECIES DETECTED(A) NOT DETECTED [facility] VAISHALI GLABRATA NOT DETECTED NOT DETECTED [facility] Comment: Vaishali species C. albicans, C. tropicalis, C. parapsilosis, and/or C. dubliniensis can be detected, but not differentiated, in the Vaishali spp. result. TRICHOMONAS VAGINALIS (TV), TMA NOT DETECTED NOT DETECTED [facility] Comment: Test Performed at: [facility] [address] [place] [address] Jana Garcia MD Genital SPECIMEN FROM VAGINA / Unknown 06/03/2024 12:31 PM CDT 06/04/2024 8:14 AM CDT us Roge Alexandre MD MICROBIOLOGY - GENERAL ORDERABLE S Final Result [facility] [phone] [facility] [address] [place] [address] * URINE CULTURE (06/03/2024 12:31 PM CDT) URINE CULTURE SEE NOTE [facility] Comment: CULTURE, URINE, ROUTINE Micro Number: [id number] Test Status: Final Specimen Source: Urine, clean catch Specimen Quality: Adequate Result: Less than 10,000 CFU/mL of single Gram positive organism isolated. No further testing will be performed. If clinically indicated, recollection using a method to minimize contamination, with prompt transfer to Urine Culture Transport Tube, is recommended. COMMENT: No group B Streptococcus isolated Test Performed at: [facility] [address] [place] [address] Jana Garcia MD Urine URINE SPECIMEN OBTAINED BY CLEAN CATCH PROCEDURE / Unknown 06/03/2024 12:31 PM CDT 06/04/2024 8:15 AM CDT Roge Alexandre MD MICROBIOLOGY - GENERAL ORDERABLE S Final Result [facility] [phone] [facility] [address] [place] [address] * CERV/VAG CYTO AGE BASED SCREEN PAP (04/15/2024 10:05 AM ACCOUNT COLLECTOR) COMMENT (PAP): Sasha Combs Comment: This order for age-based cervical cancer and STI screening follows ACOG guidelines(PB 168, 140, NSM683). See individual assays for performing site location. [...] lesion or malignancy. COMMENT (PAP TEST) Q uselena Combs Comment: This case could not be evaluated with computer assisted technology. The slide was manually screened according to routine procedures. ZIPPER IRONER: Gayla Combs Comment: BES, CT(ASCP) CT screening location: [place] [address] [address] [place] [address] Ember Combs Comment: [...] and current clinical information. Test Performed at: [place] [address] [address] [place] [address] Jana Garcia Genital SWAB OF ENDOCERVIX / Unknown 04/15/2024 10:05 AM ACCOUNT COLLECTOR 04/15/2024 10:52 PM ACCOUNT COLLECTOR Braxton Matias MD PATHOLOGY/CYTOLOGY ORDERABLES Final Result [facility] [phone] [place] [address] [address] [place] [address] from Last 3 Months or Most Recently Relevant to Health Maintenance Insurance [employer] RX [employer] RX Member Subscriber Plan / Payer (Ef fective 2024-Present) Name:Enedina Urbina Relation to Subscriber:Spouse Subscriber ID:Not on file Payer ID:Not on file Type:RX Commercial Address: [place] RX OPTUM RX Member Subscriber Plan / Payer (Ef fective 2024-Present) Name:CarlitosEnedina Relation to Subscriber:Self Name:Enedina Urbina Subscriber ID:Not on file Payer ID:Not on file Type:Not on file Address: [address] Care Teams Filler Sifter Helper Relationship Specialty Start Date End Date Tarah Samson MD [address] [place] [place] [address] PCP - General Family Practice 07/28/19
--- OUTSIDE RECORDS SUMMARY | 2024-07-14 13:08 | XMS_ITS | Clinical Summary ---
Author Organization [facility] [employer] Address [address] [place] [address] Care Team Providers Care Packer Denture Name Role Phone Unknown, Provider Primary Care Provider Unavaila ble Source Comments [facility] [employer],non-owned Affiliates and Associated Physician Practices is amultiple site organization consisting of ambulatory clinics and hospital sitesin [place], [place], [place] and [place]. This disclosure is being madepursuant to the Care Everywhere program and may not contain all information available regarding this patient. Last updated 17.[facility] [employer] Allergies No known active allergies Medications * [...] Recorded Patient Health Questionnaire-2 Score 6 03/19/2023 [facility] - Occupational Stress [...] place to sleep or slept in a penitentiary (including now)? No 03/19/2023 Comments Unknown Sex and Gender Information Value Date Recorded Sex Assigned at Not on file Legal Sex Female 6:46 AM PLATING EQUIPMENT TENDER Gender Identity Not on file Sexual Orientation Not on file Last Filed Vital Signs Vital Sign Reading Time Taken Comments Blood Pressure 120/83 03/22/2023 8:30 AM PLATING EQUIPMENT TENDER Pulse 93 03/22/2023 8:30 AM PLATING EQUIPMENT TENDER Temperature 36.3 C (97.3 F) 03/22/2023 8:30 AM PLATING EQUIPMENT TENDER Respiratory Rate 18 03/22/2023 8:30 AM PLATING EQUIPMENT TENDER Oxygen Saturation 97% 03/22/2023 8:30 AM PLATING EQUIPMENT TENDER Inhaled Oxygen Concentration - - Weight 95.6 kg (210 lb 12.8 oz) 03/19/2023 8:45 PM PLATING EQUIPMENT TENDER Height 154.9 cm (5' 1 ) 03/19/2023 8:45 PM PLATING EQUIPMENT TENDER Body Mass Index 39.83 03/19/2023 8:45 PM PLATING EQUIPMENT TENDER Plan of Treatment Health Maintenance Due Date [...] patient's age to complete this topic Insurance [facility] [place] [id number] [facility] Advance Directives * Full Code (Latest Code Status on File) Date Activated Date Inactivated Comments 03/19/2023 9:57 PM 03/22/2023 5:38 PM Care Teams Packer Denture Relationship Specialty Start Date End Date Unknown, Provider PCP - General 03/19/23
--- OUTSIDE RECORDS SUMMARY | 2024-07-14 13:08 | XMS_ITS | Patient Health Record ---
Author Organization [facility] [employer] [facility] Address [address] [place] [address] Care Team Providers Care Foreign Banknote Teller Name Role Phone Shahana Jean Baptiste Primary Care Provider Haim Mendiola Unavailable [phone] Migration, Provider Unavailable Unavailable Allergies Allergen (clinical drug ingredient) Drug/Non Drug Allergy documented on EMR Reaction Allergy Type Onset Date Status Latex Latex Unknown Allergy 05/15/2023 Active Results Component Value Reference Range Notes UDT Reviewed date:02/03/2024 04:42:40 PM Interpretation: Performing Lab: Notes/Report: THC N 0 - 50 ng/ml Cocaine N 0 - 300 ng/ml Amphetamine P 0 - 1000 ng/ml Buprenorphine (BUP) N 0 - 10 ng/ml Secobarbital (Bar) N 0 - 300 ng/ml Oxazepam (BZO) N 0 - 300 ng/ml 7-kajeqbhimd-5,2-uusedehh-4, 3-diphenylpyrrolidine (EDDP) N 0 - 300 ng/ml Methamphetamine (MET) N 0 - 1000 ng/ml Methylenedioxymethamphetamine (MDMA) N 0 - 500 ng/ml Morphine (MOP 300/LGH7194) N 0 - 300 ng/ml Methadone (MTD) N 0 - 300 ng/ml Phencyclidine (PCP) N 0 - 25 ng/ml Nortriptyline (TCA) N 0 - 1000 ng/ml Oxycodone N 0 - 300 ng/ml x N 0 - 300 ng/ml UDT Reviewed date:10/07/2023 04:28:45 PM Interpretation: Performing Lab: Notes/Report: THC N 0 - 50 ng/ml Cocaine N 0 - 300 ng/ml Amphetamine P 0 - 1000 ng/ml Buprenorphine (BUP) N 0 - 10 ng/ml Secobarbital (Bar) N 0 - 300 ng/ml Oxazepam (BZO) N 0 - 300 ng/ml 5-malwbawfjs-9,5-pcugjdyi-9, 3-diphenylpyrrolidine (EDDP) N 0 - 300 ng/ml Methamphetamine (MET) N 0 - 1000 ng/ml Methylenedioxymethamphetamine (MDMA) N 0 - 500 ng/ml Morphine (MOP 300/[id number]) N 0 - 300 ng/ml Methadone (MTD) [...] negative Secobarbital (Bar) negative Oxazepam (BZO) negative 1-jtuwygduku-4,5-cbrzoonk-3, 3-diphenylpyrrolidine (EDDP) negative Methamphetamine (MET) negative Methylenedioxymethamphetamine (MDMA) negative Morphine (MOP 300/[id number]) negative Methadone (MTD) negative Phencyclidine (PCP) negative Nortriptyline (TCA) negative x negative UDT Reviewed date:01/06/2024 01:48:51 PM Interpretation: Performing Lab: Notes/Report: THC N 0 - 50 ng/ml Cocaine N 0 - 300 ng/ml Amphetamine P 0 - 1000 ng/ml Buprenorphine (BUP) N 0 - 10 ng/ml Secobarbital (Bar) N 0 - 300 ng/ml Oxazepam (BZO) N 0 - 300 ng/ml 7-xuhsxpmoaj-3,4-jltzgipo-2, 3-diphenylpyrrolidine (EDDP) N 0 - 300 ng/ml Methamphetamine (MET) N 0 - 1000 ng/ml Methylenedioxymethamphetamine (MDMA) N 0 - 500 ng/ml Morphine (MOP 300/SPK1645) N 0 - 300 ng/ml Methadone (MTD) [...] Oxazepam (BZO) N 0 - 300 ng/ml 9-oderfktayb-6,3-bakjxuyl-2, 3-diphenylpyrrolidine (EDDP) N 0 - 300 ng/ml Methamphetamine (MET) N 0 - 1000 ng/ml Methylenedioxymethamphetamine (MDMA) N 0 - 500 ng/ml Morphine (MOP 300/[id number]) N 0 - 300 ng/ml Methadone (MTD) [...] 90 days Active Escitalopram Oxalate 20 MG TAKE 1 TABLET BY MOUTH EVERY DAY FOR 90 DAYS for 90 Active Atomoxetine HCl 80 MG 1 capsule [...] Severe recurrent major depression without psychotic features (89412025) Major depressive disorder, recurrent 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.2) Active confirmed Problem Attention deficit hyperactivity disorder, combined type (47218820) Attention-deficit hyperactivity disorder, combined type (F90.2) Active confirmed Problem [id number] DAVE (generalized anxiety disorder) (F41.1) Active confirmed Vital Signs Heart Rate 88 /min 05/04/2024 Height-cm 156.21 cm 05/04/2024 Blood pressure diastolic 93 mm Hg 05/04/2024 Weight-kg 77.11 kg 05/04/2024 Height 61.50 in 05/04/2024 Blood pressure systolic 140 mm Hg 05/04/2024 Weight 170 lbs 05/04/2024 BMI 31.6 kg/m2 05/04/2024 Encounters Encounter Location Date Provider Diagnosis [facility] [address] [place] [address] 08/07/2023 Haim Bettye Attention-deficit hyperactivity disorder, combined type F90.2 and Major depressive disorder, recurrent severe without psychotic features F33.2 [facility] [address] [place] [address] 10/07/2023 Haim Bettye Attention-deficit hyperactivity disorder, combined type F90.2 and Major depressive disorder, recurrent severe without psychotic features F33.2 [facility] [address] [facility] [address] [place] [address] 12/09/2023 Haim Bettye Attention-deficit hyperactivity disorder, combined type F90.2 and Major depressive disorder, recurrent severe without psychotic features F33.2 [facility] [address] [place] [address] 01/06/2024 Haim Bettye Attention-deficit hyperactivity disorder, combined type F90.2 and Major depressive disorder, recurrent severe without psychotic features F33.2 [facility] [address] [place] [address] 02/03/2024 Haim Bettye Attention-deficit hyperactivity disorder, combined type F90.2 and Major depressive disorder, recurrent severe without psychotic features F33.2 [facility] [address] [place] [address] 05/04/2024 Haim Bettye Attention-deficit hyperactivity disorder, combined type F90.2 ; Major depressive disorder, recurrent severe without psychotic features F33.2 and DAVE (generalized anxiety disorder) F41.1 [facility] [address] [place] [address] 05/20/2024 Haim Bettye Attention-deficit hyperactivity disorder, combined type F90.2 ; Major depressive disorder, recurrent severe without psychotic features F33.2 ; DAVE (generalized anxiety disorder) F41.1 and Encounter for screening for depression Z13.31 [facility], [facility] [address] [place] [address] 07/18/2023 Provider Migration [facility], [facility] [address] [place] [address] 07/19/2023 Provider Migration [facility], [facility] [address] [place] [address] 08/26/2023 Hami Bettye Attention-deficit hyperactivity disorder, combined type F90.2 [facility], [facility] [address] [place] [address] 05/04/2024 Haim Bettye [facility], [facility] [address] [place] [address] 08/14/2023 Haim Bettye [facility], [facility] [address] [place] [address] 08/26/2023 Haim Bettye Attention-deficit hyperactivity disorder, combined type F90.2 [facility], [facility] [address] [place] [address] 09/09/2023 Haim Bettye Attention-deficit hyperactivity disorder, combined type F90.2 [facility], [facility] [address] [place] [address] 09/10/2023 Haim Bettye Attention-deficit hyperactivity disorder, combined type F90.2 [facility], [facility] [address] [place] [address] 10/07/2023 Haim Bettye [facility], [facility] [address] [place] [address] 10/12/2023 Haim Bettye Attention-deficit hyperactivity disorder, combined type F90.2 [facility], [facility] [address] [place] [address] 11/09/2023 Haim Bettye Attention-deficit hyperactivity disorder, combined type F90.2 [facility], [facility] [address] [place] [address] 11/18/2023 Haim Bettye Attention-deficit hyperactivity disorder, combined type F90.2 [facility], [facility] [address] [facility] [address] [place] [address] 12/01/2023 Haim Bettye [facility], [facility] [address] [place] [address] 12/09/2023 Haim Bettye [facility], [facility] [address] [facility] [address] [place] [address] 12/14/2023 Haim Bettye Attention-deficit hyperactivity disorder, combined type F90.2 [facility], [facility] [address] [facility] [address] [place] [address] 03/16/2024 Haim Bettye Attention-deficit hyperactivity disorder, combined type F90.2 [facility], [facility] [address] [place] [address] 03/21/2024 Haim Bettye Attention-deficit hyperactivity disorder, combined type F90.2 [facility] [address] [facility] [address] [place] [address] 04/30/2024 Haim Bettye Attention-deficit hyperactivity disorder, combined type F90.2 [facility], [facility] [address] [facility] [address] [place] [address] 05/20[facility]20[facility] [address] [facility] [address] [place] [address] 05/24/2024 Haim Bettye [facility], [facility] [address] [facility] [address] [place] [address] 06/26/2024 Haim Bettye Attention-deficit hyperactivity disorder, combined type F90.2 Assessments Encounter Date Diagnosis (ICD Code) Assessment Notes Treatment Notes Treatment Clinical Notes Section Notes 08/07/2023 Attention-defic it hyperactivity disorder, combined type [...] 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 09/09/2023 Attention-defic it hyperactivity disorder, combined type (ICD-10 - F90.2) 09/10/2023 Attention-defic it hyperactivity disorder, combined type (ICD-10 - F90.2) 08/26/2023 Attention-defic it hyperactivity disorder, combined type [...] be sent to [facility] in [place]. Patient mentions difficulty obtaining Adderall at previous pharmacy. - Plan: - Make [facility] the primary pharmacy and send all prescriptions there. Insurance change - Assessment: Patient will be switching to [employer] insurance soon due to employment with [employer]. - Plan: - Patient to verify if the current provider is covered under the new insurance plan. - If not, the patient may need to find an in-network provider or explore [id number] benefits. Follow-up - Plan: - Schedule a [...] be sent to [facility] in [place]. Patient mentions difficulty obtaining Adderall at previous pharmacy. - Plan: - Make [facility] the primary pharmacy and send all prescriptions there. Insurance change - Assessment: Patient will be switching to [employer] insurance soon due to employment with [employer]. - Plan: - Patient to verify if the current provider is covered under the new insurance plan. - If not, the patient may need to find an in-network provider or explore [id number] benefits. Follow-up - Plan: - Schedule a follow-up appointment in one month. - Patient to confirm insurance coverage before the appointment. 06/26/2024 Attention-defic it hyperactivity disorder, combined type (ICD-10 - F90.2) 05/04/2024 Attention-defic it hyperactivity disorder, combined type (ICD-10 - F90.2) Electronic Prior Authorization was requested for Qelbree 200 MG Capsule Extended Release 24 Hour. Provider can order medication once approval received. 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 - Plan: Encourage patient to contact [employer]'s insurance department for assistance and guidance. Follow-up [...] hyperactivity disorder, combined type (ICD-10 - F90.2) 02/03/2024 Attention-defic it hyperactivity disorder, combined type (ICD-10 - F90.2) Electronic Prior Authorization was requested for Qelbree 200 MG Capsule Extended Release 24 Hour. Provider can order medication once approval received. Divorce-related Stress - Assessment: Patient reports signing divorce papers last Thursday before Thanksgiving and experiencing emotional difficulties related to family events and financial concerns. - Plan: - Encourage the patient to seek support from friends, family, or a therapist to help cope with the emotional challenges of the divorce process. Financial Stress - Assessment: Patient reports being $500 short per month and considering picking up extra shifts or a PRN position at [employer]. - Plan: - Encourage the patient [...] hyperactivity disorder, combined type (ICD-10 - F90.2) 05/20/2024 Attention-defic it hyperactivity disorder, combined type (ICD-10 - F90.2) Electronic Prior Authorization was requested for Qelbree 200 MG Capsule Extended Release 24 Hour. Provider can order medication once approval received. Electronic Prior Authorization was requested for cloNIDine ER 0.17 MG Tablet Extended Release 24 Hour. Provider can order medication once approval received. 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 - Plan: - Encourage the patient [...] depending on insurance coverage and patient preference. 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 - Plan: Encourage patient to contact [employer]'s insurance department for assistance and guidance. Follow-up - Plan: Schedule a follow-up appointment in two months to reassess patient's emotional well-being, medication effectiveness, and any changes in her situation. Other Medications - Assessment: Patient is no longer taking Colbrey due to side effects. Patient is currently taking Strattera (atomoxetine) 80 mg and has a three-month supply. 08/26/2023 Attention-defic it hyperactivity disorder, combined type (ICD-10 - F90.2) Electronic Prior Authorization was requested for Qelbree 200 MG Capsule Extended Release 24 Hour. Provider can order medication once approval received. 05/04/2024 DAVE (generalized anxiety disorder) (ICD-10 - F41.1) 05/04/2024 Major depressive disorder, recurrent severe without [...] Medication management - Assessment: Patient prefers to mushroom picker Adderall at the pharmacy where she works in [place] ([employer] [facility]). - Plan: - Send clonidine prescription to [employer]. - Continue to send Adderall and [...] management. The medication was previously sent to [facility] pharmacy. Plan: - Continue Adderall (dose not specified) - Resend Adderall prescription to [facility] pharmacy Disclaimer: This note has been transcribed using speech recognition software and serves as a reflection of the patient's visit. While efforts have been made to ensure accuracy, there may be errors, including research fellow inaccuracies and misspellings of medication names. This document should not be considered a verbatim record, and any discrepancies should be verified with the provider. Plan Of Treatment Pending Test Test Name Order Date UDT 05/04/2024 Next Appt Details Provider Name:Haim Wen , 07/22/2024 11:15:00 AM, [address] [facility], [facility] [address], [place], [address], Insurance Providers Payer Name Payer Address Payer Phone Subscriber Number Group Number Insured Name Patient Relationship to Insured Coverage Start Date Coverage End Date [facility] - Cigna [address] [place], [place] [phone] [id number] AMA URBINA Self - patient is the insured 4 Umr [address] [address] [place] [address] [id number] AMA URBINA Self - patient is the insured 5 Medical (General) History Medical History History ICD Code Problems: Adult attention deficit hypera ctivity disorder Attention deficit hyperactivity disorder , combined type Lymphocytic colitis Obsessive-compulsive disorder Polycystic ovary syndrome Severe recurrent major depression withou t psychotic features , Surgical History Surgery Date(Month/Year) Other 11/26/2020
--- OUTSIDE RECORDS SUMMARY | 2024-07-14 13:08 | XMS_ITS | Clinical Summary ---
Author Organization [facility] Address [address] [place] [address] Care Team Providers Care Community Planning Technician Name Role Phone Ilene Cedillo MIGNON Primary Care Provider [phone] Allergies Active Allergy Reactions Criticality Noted Date [...] Active Problems Problem Noted Date Diagnosed Date ([facility]) 07/04/2022 mental disorders of mother ([facility]) 07/04/2022 Family History * Patient is adopted [...] friends or relatives? Patient declined 07/05/2022 Attends Worship Services Not on file 07/05 Active Member [...] and heating? Not hard at all 07/05/2022 [facility] - Occupational [...] place to sleep or slept in a retirement (including now)? No 07/05/2022 Depression Answer Date [...] Comments Blood Pressure 139/84 03/17/2023 1:13 PM WATER PLUMBER Pulse 78 03/17/2023 1:13 PM WATER PLUMBER Temperature 36.4 C (97.5 F) 03/17/2023 1:13 PM WATER PLUMBER Respiratory Rate 18 03/17/2023 1:13 PM WATER PLUMBER Oxygen Saturation 100% 03/17/2023 1:13 PM WATER PLUMBER Inhaled Oxygen Concentration - - Weight 94.7 kg (208 lb 12.4 oz) 03/17/2023 1:13 PM WATER PLUMBER Height 157.5 cm (5' 2 ) 03/17/2023 1:13 PM WATER PLUMBER Body Mass Index 38.19 03/17/2023 1:13 PM WATER PLUMBER Plan of Treatment Health Maintenance Due Date [...] 8:29 AM 07/06/2022 3:03 PM Care Teams Community Planning Technician Relationship Specialty Start Date End Date Ilene Cedillo CNM [address] [place] [id number] (work) PCP - General CERTIFIED NURSE SURGICAL NURSE PRACTITIONER 07/03/22
--- OUTSIDE RECORDS SUMMARY | 2024-07-14 13:08 | XMS_ITS | Encounter Summary ---
Author Organization [facility] Address 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 Sexual Orientation Not on file documented as of this encounter Plan of Treatment Upcoming Encounters Date Type Department Care Team (Late st Contact Info) Description 12/15/2024 Hospital Encounter [facility] OB Triage [address] [place] [address] Braxton Matias MD [address] [facility] [address] [place] [address] documented as of this encounter Visit Diagnoses Not on filedocumented in this encounter Care Teams Can Technician Relationship Specialty Start Date End Date Tarah Samson MD [address] [place] [address] PCP - General Family Practice 07/28/19 documented as of this encounter
--- OUTSIDE RECORDS SUMMARY | 2024-07-14 13:08 | XMS_ITS | Clinical Summary ---
Author Organization [facility] Address [address] [place] [address] Care Team Providers Care Welding Engineer Name Role Phone No, Physician Primary Care Provider [phone] Alphonso Frias MD Unavailable [phone] Allergies Active Allergy Reactions Criticality Noted Date [...] of Binge Drinking Not on file 11/01 [place] Depression Scale Answer Date Recorded [place] Depression Scale Total 3 11/29/2020 The thought [...] Frias MD Complications:None Delivery Location:This Facil ity ([facility]) Comments:see ped note Last [...] Payer ID:[id number] Group ID:[id number] Type:COMMERCIAL Address: [place] [id number] [employer]ERCIAL GENERIC [employer] OPEN ACCESS LOCAL PLUS COMMERCIAL GENERIC Advance Directives For more information, please contact: [phone] * Full Code (Latest Code Status on File) Date Activated Date Inactivated Comments 11/26/2020 1:17 PM 11/29/2020 3:03 PM * Full Code Date Activated Date Inactivated Comments 11/26/2020 9:58 AM 11/26/2020 1:17 PM Full CPR in case of cardiopulmonary arrest * Full Code Date Activated Date Inactivated Comments 10/12/2020 2:43 AM 10/14/2020 6:46 PM Care Teams Welding Engineer Relationship Specialty Start Date End Date No, Physician PCP - General 07/24/20 Alphonso Frias MD [address] [place] [address] Terminal Operations Supervisor Obstetrics and Gynecology 11/27/20
--- OUTSIDE RECORDS SUMMARY | 2024-07-14 13:08 | XMS_ITS | Referral Summary ---
Author Organization [facility] [address] [place] [address] Care Team Providers Care Shipping Team Leader Name Role Phone No, Physician Primary Care Provider [phone] Alphonso Frias MD Unavailable [phone] Allergies Active Allergy Reactions Criticality Noted Date [...] of Binge Drinking Not on file 11/01 [place] Depression Scale Answer Date Recorded [place] Depression Scale Total 3 11/29/2020 The thought [...] Advance Directives For more information, please contact: [phone] * Full Code (Latest Code Status on File) Date Activated Date Inactivated Comments 11/26/2020 1:17 PM 11/29/2020 3:03 PM * Full Code Date Activated Date Inactivated Comments 11/26/2020 9:58 AM 11/26/2020 1:17 PM Full CPR in case of cardiopulmonary arrest * Full Code Date Activated Date Inactivated Comments 10/12/2020 2:43 AM 10/14/2020 6:46 PM Care Teams Shipping Team Leader Relationship Specialty Start Date End Date No, Physician PCP - General 07/24/20 Alphonso Frias MD [address] [address] Rn Telehealth Obstetrics and Gynecology 11/27/20
[2024-07-14 13:09] LABS: Basophils Percent Auto 0.4 % (0.2-1.2); Eosinophils Percent Auto 0.2 % (0-4.4); Hematocrit 41.3 % (37.0-47.0); Hemoglobin 13.2 g/dL (12.0-15.0); Immature Granulocyte Absolute 0.04 K/mm3 (0.00-0.031); Immature Granulocyte Percent A 0.4 % (0-0.5); Lymphocytes Absolute Auto 2.35 K/mm3 (0.9-3.2); Lymphocytes Percent Auto 22.5 % (18.3-44.2); Mean Corpuscular Hemoglobin 27.8 pg (26-34); Mean Corpuscular Volume 86.9 fl (80-100); Mean Platelet Volume 9.2 fl (7.4-10.4); Monocytes Absolute Auto 0.7 K/mm3 (0.1-0.6); Monocytes Percent Auto 6.3 % (2.6-8.5); Neutrophils Absolute Auto 7.4 K/mm3 (1.3-6.7); Neutrophils Percent Auto 70.2 % (45.5-73.1); Platelet Count Result 326 k/mm3 (150-375); Red Blood Count 4.75 M/mm3 (4.2-5.4); Red Cell Distribution Width 12.2 % (11.5-14.5); White Blood Count 10.5 K/mm3 (4.5-10.0)
[2024-07-14 13:20] LABS: Alanine Aminotransferase 20 U/L (6-35); Albumin Level 4.4 g/dL (3.5-5.1); Alkaline Phosphatase 95 U/L (38-126); Anion Gap 12 mmol/L (4-12); Aspartate Amino Transferase 43 U/L (14-36); Bilirubin,Total 0.6 mg/dL (0.2-1.3); Blood Urea Nitrogen 13 mg/dL (7-17); Calcium 9.5 mg/dL (8.4-10.2); Carbon Dioxide 21 mmol/L (22-30); Chloride 106 mmol/L (98-107); Estimated CRCL calculation 81 ml/min; Estimated Glomerular Filt Rate > 60; Glucose 76 mg/dL (65-110); Lipase 55 U/L (23-300); Potassium 3.4 mmol/L (3.4-5.0); Prothrombin Time 13.9 Seconds (11.1-14.7); Sodium 139 mmol/L (137-145)
[2024-07-14 13:32] LABS: Troponin I 0.014 ng/mL (0.000-0.034)
--- NOTE | 2024-07-14 13:54 | ED_ITS ---
HPI - Chest Pain General Chief Complaint: Chest Pain Stated Complaint: CP History of Present Illness HPI narrative: Patient is a 28-year-old female who presents ER with elevated heart rate and chest pain. She was outside doing yard work mowing the lawn when she developed some chest pressure going to her shoulder. No loss of consciousness. She felt like her heart was racing. She recently had a Holter monitor study but has not yet received the results. Study was performed here. She has not seen a rail technician. She is on ADHD medication. She is decrease caffeine intake. No history of heart arrhythmia. No history of cardiac disease. Reports her heart rate was 150 beats per minute today. She reports she has had her thyroid function tested and it was normal. Related Data Home Medications Medication Instructions Recorded Confirmed Last Taken Type escitalopram oxalate 20 mg tablet 20 mg PO DAILY 04/21/23 06/21/24 Unknown History (Lexapro) atomoxetine 80 mg capsule 80 mg PO DAILY 11/18/23 06/21/24 Unknown History (Strattera) dextroamphetamine-amphetamine ER 20 mg PO DAILY 11/18/23 06/21/24 Unknown History 20 mg 24hr capsule,extend release (Adderall XR) ondansetron HCl 4 mg tablet 4 mg PO Q6H PRN 11/18/23 06/21/24 Unknown History Allergies Allergy/AdvReac Type Severity Reaction Status Date / Time milk Allergy Congested Verified 07/14/24 12:58 Latex Allergy Mild Rash Uncoded 07/14/24 12:58 PMFSH Past Medical History Medical History Normal colonoscopy ADHD Miscarriage BMI 30.0-30.9,adult Abdominal pain Gas bloat syndrome Blood in stool Diarrhea Social History Social History (Updated 06/21/24 @ 12:22 by Shahana Cotter APRN) Smoking status: Never smoker Second hand tobacco smoke exposure: No Alcohol intake: current Drinks per week: 1 Alcohol use details: 1 glass/wine 1-2 x/week Substance use: never Substance use type: does not use Do You Feel Safe in your Home?: Yes Lack of Transportation: No Lack of Food: Never True Current Housing: I Have Housing Concerned About Future Housing: No Difficulty Paying Gas/Electric Bills: No Difficulty Paying for Meds: No Currently Unemployed: No Education: Associate Degree Difficulty w/ Childcare or Family Care: No Living arrangements: with family Additional living arrangements comments: two children Occupation/Education: occupation Additional occupation/education comments: L&D Nurse Gender identity (if verbalized by the patient): Female Sexual Orientation (if Verbalized by the Patient): Straight or Heterosexual Spiritual care concerns: No Agree to blood products: Yes Exam 2 Narrative: GENERAL: Well-appearing, well-nourished, and in no acute distress. HEAD: Normocephalic, atraumatic. ENT: Mucous membranes moist. CHEST: Clear to auscultation. No respiratory distress. HEART: Tachycardic and regular. Normal peripheral pulses. ABDOMEN: Soft, nontender, nondistended. EXTREMITIES: Normal range of motion. No edema. SKIN: Warm, dry, no rash. NEURO: Alert and oriented x3. PSYCH: Normal mood and affect. Course Course Emergency Course: Patient resting comfortably. Informed of results. Heart rate improved with fluids. May be having paroxysmal SVT. Discussed with Cardiology, Reyna Chacko DIRECTOR OF CLINICAL SERVICES. Will place on low-dose metoprolol ER, patient is on clonidine so will also hold this. Should route obtain results of Holter monitor and may need to see Cardiology. Patient verbalized understanding treatment plan. Vital Signs Vital signs: Vital Signs Temperature 98.3 F 07/14/24 12:50 Pulse Rate 127 H 07/14/24 12:50 Respiratory Rate 18 07/14/24 12:50 Blood Pressure 123/77 07/14/24 12:50 Pulse Oximetry 100 07/14/24 12:50 Oxygen Delivery Room Air 07/14/24 12:50 Temperature 98.3 F 07/14/24 12:50 Pulse Rate 88 07/14/24 16:57 Respiratory Rate 18 07/14/24 16:30 Blood Pressure 111/68 07/14/24 16:57 Pulse Oximetry 98 07/14/24 16:57 Oxygen Delivery Room Air 07/14/24 13:01 MDM - Chest Pain Lab Data 07/14/24 12:59 07/14/24 13:00 Labs: Lab Results 07/14/24 07/14/24 07/14/24 Range/Units 12:59 13:00 15:46 WBC 10.5 H (4.5-10.0) K/mm3 RBC 4.75 (4.2-5.4) M/mm3 Hgb 13.2 (12.0-15.0) g/dL Hct 41.3 (37.0-47.0) % MCV 86.9 (80-100) fl MCH 27.8 (26-34) pg MCHC 32.0 (32-36) g/dl RDW 12.2 (11.5-14.5) % Plt Count 326 (150-375) k/mm3 MPV 9.2 (7.4-10.4) fl Immature Gran % (Auto) 0.4 (0-0.5) % Neut % (Auto) 70.2 (45.5-73.1) % Lymph % (Auto) 22.5 (18.3-44.2) % [place] % (Auto) 6.3 (2.6-8.5) % Eos % (Auto) 0.2 (0-4.4) % Baso % (Auto) 0.4 (0.2-1.2) % Lymph # (Auto) 2.35 (0.9-3.2) K/mm3 [place] # (Auto) 0.7 H (0.1-0.6) K/mm3 Eos # (Auto) 0.0 (0-0.3) K/mm3 Baso # (Auto) 0.0 (0.0-0.1) K/mm3 Abs Immat Gran (auto) 0.04 H (0.00-0.031) K/mm3 Absolute Neuts (auto) 7.4 H (1.3-6.7) K/mm3 Absolute Nucleated RBC 0.000 (0.0-0.012) K/mm3 Nucleated RBC % 0.0 (0.0-0.2) % PT 13.9 (11.1-14.7) Seconds INR 1.0 APTT 31.0 (22.3-36.8) Seconds Sodium 139 (137-145) mmol/L Potassium 3.4 (3.4-5.0) mmol/L Chloride 106 (98-107) mmol/L Carbon Dioxide 21 L (22-30) mmol/L Anion Gap 12 (4-12) mmol/L BUN 13 (7-17) mg/dL Creatinine 0.84 (0.7-1.0) mg/dL Estim Creat Clear Calc 81 ml/min Estimated GFR > 60 (59 - ) Glucose 76 (65-110) mg/dL Calcium 9.5 (8.4-10.2) mg/dL Total Bilirubin 0.6 (0.2-1.3) mg/dL AST 43 H (14-36) U/L ALT 20 (6-35) U/L Alkaline Phosphatase 95 (38-126) U/L Troponin I 0.014 0.017 D (0.000-0.034) ng/mL Total Protein 8.0 (6.3-8.2) g/dL Albumin 4.4 (3.5-5.1) g/dL Lipase 55 (23-300) U/L Imaging Data Radiologist's impression: ITS Impressions Chest X-Ray 07/14/24 13:34 IMPRESSION: 1. No acute cardiopulmonary disease. Chest CTA 07/14/24 14:54 IMPRESSION: 1. No pulmonary embolism or other acute cardiopulmonary disease. Discharge Plan Discharge Clinical Impression: Heart palpitations Patient Disposition: Home Condition: Stable Instructions: Supraventricular Tachycardia (ED), Heart Palpitations (ED) Additional Instructions: Please return to the emergency department if you develop severe and persistent chest pain, difficulty breathing, dizziness, leg swelling or if you are coughing up blood as these can be signs of a medical emergency. Please call your doctor for a follow up appointment to determine the need for further testing. Stop your clonidine. Start Metoprolol tomorrow. Patient Language: Thai Prescriptions: New metoprolol succinate 25 mg tablet extended release 24 hr 12.5 mg PO DAILY Qty: 30 0RF Discontinued clonidine HCl 0.1 mg tablet 0.1 mg PO DAILY No Action ondansetron HCl 4 mg tablet 4 mg PO Q6H PRN atomoxetine [Strattera] 80 mg capsule 80 mg PO DAILY dextroamphetamine-amphetamine [Adderall XR] 20 mg capsule,extended release 24hr 20 mg PO DAILY escitalopram oxalate [Lexapro] 20 mg tablet 20 mg PO DAILY Follow-up/Referrals: Madhu Corral MD [Physician] - 1 Week Shahana Cotter APRN [Primary Care Provider] - 1 Week
[2024-07-14] MEDS: SODIUM CHLORIDE 0.9% IV 1,000 ML 999 ML IV CONT (14:10)
--- NOTE | 2024-07-14 15:34 | ECG_ITS ---
Test Date: 2024-07-14 15:46:53 Measurements Intervals [place] Rate: 99 P: 47 TN: 157 QRS: 29 QRSD: 94 T: 12 QT: 350 QTc: 451 Interpretive Statements SINUS RHYTHM WITH OCCASIONAL VENTRICULAR PREMATURE COMPLEXES NONSPECIFIC T-WAVE ABNORMALITY ABNORMAL ECG Electronically Signed On 07-15-2024 09:47:27 CDT by Peng Isaac M.D.
[2024-07-14 16:14] LABS: Troponin I 0.017 ng/mL (0.000-0.034)
== END 2024-07-14 16:59 | disposition home or self-care (01) ==
PROVIDERS: Emergency Provider Emergency Medicine; PCP Nurse Practitioner Family
DX: R00.2 Palpitations (principal); F90.9 Attention-deficit hyperactivity disorder, unspecified type; Z79.899 Other long term (current) drug therapy
CPT/HCPCS: 36415; 71046; 71275; 80053; 83690; 84484; 85025; 85610; 85730; 93005; 96360; 99284; J7030; Q9967